=== PATIENT | female | born 1935 | race Caucasian/White ===

== ENCOUNTER 2016-08-17 23:56 | Inpatient (IN) | payer OTHER, MEDICARE ==
[~2016-08-17] VITALS: Ht 152.4 cm; Wt 58.0 kg
[~2016-08-17 23:56] MED LIST: ALENDRONATE SOD70 M1 PO; AMITIZA24 MC1 PO; APR25 PO; APR50 PO; ATRNS6; BG MC; CAR30 PO; CLINDAMYCI600 MG/50 IV; COL100 PO; COZ50 PO; COZAAR100 MG PO; DEXPF IV; DIG125 PO; DIGITEK0.125 MG PO; DILTIAZEM60 M1 PO; FAMILY PHARMAC325 MG PO; FER300 PO; FERROUS SULFAT325 M2 PO; FUROSEMI PO; FUROSEMIDE40 MG PO; GABAPENTIN100 M2 PO; GLU10 PO; GLU5 PO; GLU500 PO; GLYBURIDE/METFO1 TA7 PO; HUMULIN R100 U/1 M1 SC; HYDRALAZINE HYD50 MG PO; HYDRALAZINE50 MG PO; IMD60 PO; IPRATROPIUM BROM3 M2 HHN; K10 PO; L40 PO; L40I IV; LAC PO; LEV500PM IV; LEVAQUIN750 MG PO; LIPI10 PO; LOP50 PO; LOPRESSOR50 MG PO; LOSARTAN POTAS100 MG PO; METFORMIN HCL1000 MG PO; METOPROLOL25 MG PO; MIRUD PO; NAP500 PO; NEU300 PO; NIT0.4 SL; OYSTER SHELL CA PO; PENTOXIFYL XR400 M1 PO; POTASSIUM CHLO10 MEQ PO; POTASSIUM20 MEQ PO; PRA20 PO; PRADAXA150 MG PO; PRI20 PO; RESTASIS OP; ROBDML PO; TRADJENTA PO; TRADJENTA5 M1 PO; TRE400 PO; TYL325 PO; VITD PO; XARELTO PO; XARELTO10 M1 PO; XARELTO15 M1 PO; ZOFI IV
[2016-08-18 00:56] LABS: PLATELET COUNT 217 x10^3mcL (130-400)
[2016-08-18 01:00] LABS: RED CELL DISTRIBUTION WIDTH 14.9 % (11.5-14.5)
[2016-08-18 01:15] LABS: CALCIUM 9.3 mg/dL (8.5-10.1); CARBON DIOXIDE 30.1 mmol/L (21-32); CHLORIDE SERUM 101 mmol/L (98-107); CREATININE SERUM 1.1 mg/dL (0.6-1.0); GLUCOSE SERUM 220 mg/dL (74-106); POTASSIUM SERUM 3.2 mmol/L (3.5-5.1); SODIUM SERUM 141 mmol/L (136-145)
[2016-08-18 01:25] LABS: ALBUMIN 3.5 g/dL (3.4-5.0); ALKALINE PHOSPHATASE 85 U/L (46-116); ALT/SGPT 23 U/L (14-59); AST/SGOT 12 U/L (15-37); BILIRUBIN TOTAL 0.4 mg/dL (0.20-1.00); TOTAL PROTEIN, SERUM 7.3 g/dL (6.4-8.2)
[2016-08-18 02:13] LABS: CHOLESTEROL/HDL RATIO 4.7; MAGNESIUM 1.8 mg/dL (1.8-2.4); PHOSPHOROUS 2.8 mg/dL (2.5-4.9)
[2016-08-18 02:27] LABS: FREE T4 1.22 ng/dL (0.76-1.46)
[2016-08-18 05:55] VITALS: BP 120/59
[2016-08-18 08:38] VITALS: BP 120/59
[2016-08-18 09:18] LABS: T3 TOTAL 1.03 ng/mL
[2016-08-18 13:37] VITALS: BP 118/59
[2016-08-18 17:44] VITALS: BP 157/53
[2016-08-18 21:05] VITALS: BP 157/70
[2016-08-19 05:22] VITALS: BP 109/79
[2016-08-19 06:55] LABS: BASOPHIL % 0.2 % (0-2); PLATELET COUNT 188 x10^3mcL (130-400)
[2016-08-19 06:59] LABS: CALCIUM 8.7 mg/dL (8.5-10.1); CARBON DIOXIDE 32.8 mmol/L (21-32); CHLORIDE SERUM 106 mmol/L (98-107); CREATININE SERUM 0.9 mg/dL (0.6-1.0); GLUCOSE SERUM 109 mg/dL (74-106); MAGNESIUM 1.6 mg/dL (1.8-2.4); PHOSPHOROUS 3.2 mg/dL (2.5-4.9); POTASSIUM SERUM 3.8 mmol/L (3.5-5.1); SODIUM SERUM 144 mmol/L (136-145)
[2016-08-19 07:00] LABS: RED CELL DISTRIBUTION WIDTH 15.3 % (11.5-14.5)
[2016-08-19 10:00] VITALS: BP 134/68
[2016-08-19 14:11] VITALS: BP 133/68
[2016-08-19 18:40] LABS: microscopic required? NO
[2016-08-19 18:50] LABS: urine erythrocyte NEGATIVE (NEGATIVE)
[2016-08-19 19:02] VITALS: BP 139/66
[2016-08-19 21:35] VITALS: BP 158/83
[2016-08-19 23:06] VITALS: BP 131/61
[2016-08-20 05:38] VITALS: BP 148/73
[2016-08-20 09:13] VITALS: BP 115/68
[2016-08-20 14:15] VITALS: BP 133/64
[2016-08-20 22:03] VITALS: BP 160/82
[2016-08-21 06:05] VITALS: BP 138/68
[2016-08-21 06:25] LABS: CALCIUM 8.3 mg/dL (8.5-10.1); CHLORIDE SERUM 105 mmol/L (98-107); CREATININE SERUM 0.9 mg/dL (0.6-1.0); GLUCOSE SERUM 85 mg/dL (74-106); MAGNESIUM 2.1 mg/dL (1.8-2.4); PHOSPHOROUS 3.1 mg/dL (2.5-4.9); POTASSIUM SERUM 3.7 mmol/L (3.5-5.1); SODIUM SERUM 143 mmol/L (136-145)
[2016-08-21 07:52] LABS: BASOPHIL % 0.5 % (0-2); PLATELET COUNT 183 x10^3mcL (130-400)
[2016-08-21 07:54] LABS: RED CELL DISTRIBUTION WIDTH 16.2 % (11.5-14.5)
[2016-08-21] MEDS ORDERED: TRADJENTA5 M1 PO (08:59)
[2016-08-21] MEDS ORDERED: LEVAQUIN750 MG PO (09:01)
[2016-08-21] MEDS ORDERED: CLEOCIN HCL300 MG PO (09:01)
[2016-08-21] MEDS ORDERED: LAC PO (09:03)
[2016-08-21 09:30] VITALS: BP 138/66
[2016-08-21 11:06] VITALS: BP 138/66
== END 2016-08-21 14:19 | disposition home or self-care (01) | DRG 137 ==
LOC: ED 23:56 → DU 08-18 01:33
PROVIDERS: Emergency Medicine; Family Medicine; ADMIT Family Medicine
DX: J69.0 Pneumonitis due to inhalation of food and vomit (principal); N17.0 Acute kidney failure with tubular necrosis; I50.43 Acute on chronic combined systolic (congestive) and diastolic (congestive) heart failure; J96.10 Chronic respiratory failure, unspecified whether with hypoxia or hypercapnia; I42.0 Dilated cardiomyopathy; D68.69 Other thrombophilia; E11.65 Type 2 diabetes mellitus with hyperglycemia; E11.42 Type 2 diabetes mellitus with diabetic polyneuropathy; E11.51 Type 2 diabetes mellitus with diabetic peripheral angiopathy without gangrene; I48.2 Chronic atrial fibrillation; I11.0 Hypertensive heart disease with heart failure; I16.0 Hypertensive urgency; E87.6 Hypokalemia; E78.5 Hyperlipidemia, unspecified; Z79.4 Long term (current) use of insulin; Z68.24 Body mass index [BMI] 24.0-24.9, adult; Z99.81 Dependence on supplemental oxygen; I25.10 Atherosclerotic heart disease of native coronary artery without angina pectoris
CPT/HCPCS: 83880; 84439; 97110-GP; 97116-GP; 97530-GP; J2543; J3475; J3490; J7030; Q0092

== ENCOUNTER 2016-08-24 08:35 | Emergency (ER) | payer MEDICARE, OTHER ==
[~2016-08-24] VITALS: Ht 157.5 cm; Wt 57.1 kg
[~2016-08-24 08:35] MED LIST changes: +CLEOCIN HCL300 MG PO
[2016-08-24 09:17] LABS: BASOPHIL % 0.4 % (0-2); PLATELET COUNT 244 x10^3mcL (130-400)
[2016-08-24 09:22] LABS: RED CELL DISTRIBUTION WIDTH 16.5 % (11.5-14.5)
[2016-08-24 09:27] LABS: CALCIUM 9.5 mg/dL (8.5-10.1); CARBON DIOXIDE 31.5 mmol/L (21-32); CHLORIDE SERUM 102 mmol/L (98-107); CREATININE SERUM 1.1 mg/dL (0.6-1.0); GLUCOSE SERUM 136 mg/dL (74-106); POTASSIUM SERUM 3.7 mmol/L (3.5-5.1); SODIUM SERUM 141 mmol/L (136-145)
[2016-08-24 09:41] LABS: CK-MB 0.7 ng/mL (0-3.6); FREE T4 1.25 ng/dL (0.76-1.46); FREE THYROXINE INDEX 2.6 ug/dL (1.4-4.5); T3 TOTAL 1.09 ng/mL; T4(THYROXINE) 8.1 ug/dL (4.7-13.3)
[2016-08-24 09:49] LABS: ALKALINE PHOSPHATASE 72 U/L (46-116); ALT/SGPT 17 U/L (14-59); AST/SGOT 13 U/L (15-37); BILIRUBIN TOTAL 0.7 mg/dL (0.20-1.00); C REACTIVE PROTEIN 11.2 mg/dL (<=0.9); TOTAL PROTEIN, SERUM 7.2 g/dL (6.4-8.2)
[2016-08-24 09:51] LABS: ALBUMIN 3.2 g/dL (3.4-5.0)
[2016-08-24 10:22] LABS: ERYTHROCYTE SED RATE 36 mm/hr (0-30)
[2016-08-24 14:00] VITALS: BP 148/90
== END 2016-08-24 16:22 | disposition home or self-care (01) ==
LOC: ED 08:35
PROVIDERS: Specialist
DX: I48.91 Unspecified atrial fibrillation (principal); I11.0 Hypertensive heart disease with heart failure; R11.2 Nausea with vomiting, unspecified; E11.9 Type 2 diabetes mellitus without complications; I73.9 Peripheral vascular disease, unspecified; I25.10 Atherosclerotic heart disease of native coronary artery without angina pectoris; G62.9 Polyneuropathy, unspecified; E78.5 Hyperlipidemia, unspecified; Z90.89 Acquired absence of other organs
CPT/HCPCS: 83880; 84439; J0360; J3490; J7030

== ENCOUNTER 2016-10-21 11:37 | Inpatient (IN) | payer OTHER, MEDICARE ==
[~2016-10-21] VITALS: Ht 152.4 cm; Wt 56.4 kg
[2016-10-21 12:48] LABS: BASOPHIL % 0.4 % (0-2); PLATELET COUNT 255 x10^3mcL (130-400)
[2016-10-21 12:49] LABS: RED CELL DISTRIBUTION WIDTH 17.5 % (11.5-14.5)
[2016-10-21 13:12] LABS: CALCIUM 9.4 mg/dL (8.5-10.1); CARBON DIOXIDE 27.1 mmol/L (21-32); CHLORIDE SERUM 103 mmol/L (98-107); CREATININE SERUM 0.7 mg/dL (0.6-1.0); GLUCOSE SERUM 111 mg/dL (74-106); POTASSIUM SERUM 3.6 mmol/L (3.5-5.1); SODIUM SERUM 138 mmol/L (136-145)
[2016-10-21 13:17] LABS: ALBUMIN 3.4 g/dL (3.4-5.0); ALKALINE PHOSPHATASE 90 U/L (46-116); ALT/SGPT 37 U/L (14-59); AST/SGOT 29 U/L (15-37); BILIRUBIN TOTAL 0.5 mg/dL (0.20-1.00); LIPASE 247 IU/L (73-393); TOTAL PROTEIN, SERUM 6.8 g/dL (6.4-8.2)
[2016-10-21 14:04] LABS: UA SPECIFIC GRAVITY 1.015 (1.005-1.035); microscopic required? YES; urine erythrocyte NEGATIVE (NEGATIVE)
[2016-10-21] MEDS ORDERED: METOPROLOL TART50 MG PO (15:32)
[2016-10-21] MEDS ORDERED: DIG125 PO (15:33)
[2016-10-21] MEDS ORDERED: GABAPENTIN300 M4 PO (15:35)
[2016-10-21] MEDS ORDERED: COZAAR100 MG PO (15:37)
[2016-10-21] MEDS ORDERED: AMITIZA24 MC1 PO (15:37)
[2016-10-21 16:36] LABS: CHOLESTEROL/HDL RATIO 3.3; MAGNESIUM 1.7 mg/dL (1.8-2.4); PHOSPHOROUS 3.4 mg/dL (2.5-4.9)
[2016-10-21 16:38] LABS: T3 TOTAL 1.03 ng/mL
[2016-10-21 16:45] VITALS: BP 147/83
[2016-10-21 16:46] LABS: FREE T4 1.09 ng/dL (0.76-1.46); T4(THYROXINE) 8.7 ug/dL (4.7-13.3)
[2016-10-21 17:04] VITALS: BP 136/85
[2016-10-21 17:32] VITALS: BP 136/85
[2016-10-21 21:16] VITALS: BP 142/88
[2016-10-22 05:43] VITALS: BP 124/91
[2016-10-22 06:11] LABS: BASOPHIL % 0.3 % (0-2); PLATELET COUNT 233 x10^3mcL (130-400)
[2016-10-22 06:25] LABS: CALCIUM 9.2 mg/dL (8.5-10.1); CARBON DIOXIDE 29.6 mmol/L (21-32); CHLORIDE SERUM 105 mmol/L (98-107); CREATININE SERUM 0.9 mg/dL (0.6-1.0); GLUCOSE SERUM 73 mg/dL (74-106); MAGNESIUM 1.6 mg/dL (1.8-2.4); PHOSPHOROUS 4.4 mg/dL (2.5-4.9); POTASSIUM SERUM 3.2 mmol/L (3.5-5.1); SODIUM SERUM 143 mmol/L (136-145)
[2016-10-22 10:03] VITALS: BP 160/84
[2016-10-22 13:19] VITALS: BP 138/75
[2016-10-22 17:22] VITALS: BP 162/93
[2016-10-22 20:00] VITALS: BP 108/83
[2016-10-22 21:53] VITALS: BP 145/75
[2016-10-23] VITALS (8 sets, daily range): BP systolic 140–174; BP diastolic 76–104
[2016-10-23] MEDS ORDERED: TOPROL XL100 MG PO (12:12)
[2016-10-23] MEDS ORDERED: CARDIZEM30 MG PO (12:16)
[2016-10-23] MEDS ORDERED: LEVAQUIN750 MG PO (12:17)
[2016-10-23] MEDS ORDERED: LAC PO (12:18)
[2016-10-24 05:22] VITALS: BP 156/85
[2016-10-24 06:11] LABS: BASOPHIL % 0.3 % (0-2); PLATELET COUNT 228 x10^3mcL (130-400)
[2016-10-24 06:21] LABS: CARBON DIOXIDE 28.9 mmol/L (21-32); CHLORIDE SERUM 104 mmol/L (98-107); CREATININE SERUM 0.8 mg/dL (0.6-1.0); GLUCOSE SERUM 139 mg/dL (74-106); MAGNESIUM 1.9 mg/dL (1.8-2.4); PHOSPHOROUS 3.5 mg/dL (2.5-4.9); POTASSIUM SERUM 3.5 mmol/L (3.5-5.1); SODIUM SERUM 142 mmol/L (136-145)
[2016-10-24 06:36] LABS: RED CELL DISTRIBUTION WIDTH 17.6 % (11.5-14.5)
[2016-10-24 09:12] VITALS: BP 156/85
[2016-10-24 10:07] VITALS: BP 131/78
[2016-10-24] MEDS ORDERED: CLEOCIN HCL300 MG PO (11:38)
[2016-10-24 12:04] VITALS: BP 131/78
== END 2016-10-24 13:35 | disposition home or self-care (01) | DRG 137 ==
LOC: ED 11:37 → DU 15:29
PROVIDERS: Emergency Medicine; ADMIT Family Medicine
DX: J69.0 Pneumonitis due to inhalation of food and vomit (principal); N17.0 Acute kidney failure with tubular necrosis; I50.43 Acute on chronic combined systolic (congestive) and diastolic (congestive) heart failure; J44.1 Chronic obstructive pulmonary disease with (acute) exacerbation; I11.0 Hypertensive heart disease with heart failure; I48.2 Chronic atrial fibrillation; I16.0 Hypertensive urgency; I25.10 Atherosclerotic heart disease of native coronary artery without angina pectoris; E11.65 Type 2 diabetes mellitus with hyperglycemia; E11.51 Type 2 diabetes mellitus with diabetic peripheral angiopathy without gangrene; E11.42 Type 2 diabetes mellitus with diabetic polyneuropathy; Z99.81 Dependence on supplemental oxygen; E83.39 Other disorders of phosphorus metabolism; E87.6 Hypokalemia; R09.02 Hypoxemia; E78.5 Hyperlipidemia, unspecified; Z68.24 Body mass index [BMI] 24.0-24.9, adult; Z79.84 Long term (current) use of oral hypoglycemic drugs; Z91.19 Patient's noncompliance with other medical treatment and regimen
CPT/HCPCS: 83880; 84439; 94150; J0360; J1815; J1940; J1956; J3490; J7030; J7040; J7620; J7633; Q0092; Q0162; Q9967

== ENCOUNTER 2017-03-01 04:13 | Inpatient (IN) | payer OTHER, MEDICARE ==
[~2017-03-01] VITALS: Ht 149.9 cm; Wt 57.2 kg
[~2017-03-01 04:13] MED LIST changes: +CARDIZEM30 MG PO; +GABAPENTIN300 M4 PO; +METOPROLOL TART50 MG PO; +TOPROL XL100 MG PO
[2017-03-01 05:15] LABS: BASOPHIL % 0.2 % (0-2); PLATELET COUNT 237 x10^3mcL (130-400)
[2017-03-01 05:19] LABS: RED CELL DISTRIBUTION WIDTH 20.4 % (11.5-14.5)
[2017-03-01 05:22] LABS: CALCIUM 9.1 mg/dL (8.5-10.1); CARBON DIOXIDE 28.1 mmol/L (21-32); CHLORIDE SERUM 102 mmol/L (98-107); CREATININE SERUM 1.1 mg/dL (0.6-1.0); GLUCOSE SERUM 134 mg/dL (74-106); POTASSIUM SERUM 3.9 mmol/L (3.5-5.1); SODIUM SERUM 135 mmol/L (136-145)
[2017-03-01 05:26] LABS: ALKALINE PHOSPHATASE 85 U/L (46-116); ALT/SGPT 26 U/L (14-59); AST/SGOT 23 U/L (15-37); BILIRUBIN TOTAL 0.28 mg/dL (0.20-1.00); TOTAL PROTEIN, SERUM 6.6 g/dL (6.4-8.2)
[2017-03-01 07:43] LABS: MAGNESIUM 1.9 mg/dL (1.8-2.4); PHOSPHOROUS 2.5 mg/dL (2.5-4.9)
[2017-03-01 07:45] LABS: CHOLESTEROL/HDL RATIO 4.4
[2017-03-01 07:50] LABS: FREE T4 1.01 ng/dL (0.76-1.46); FREE THYROXINE INDEX 2.5 ug/dL (1.4-4.5); T4(THYROXINE) 7.4 ug/dL (4.7-13.3)
[2017-03-01 08:14] LABS: UA SPECIFIC GRAVITY 1.015 (1.005-1.035); microscopic required? YES; urine erythrocyte NEGATIVE (NEGATIVE)
[2017-03-01 08:43] VITALS: BP 130/64
[2017-03-01 10:56] LABS: T3 TOTAL 0.89 ng/mL
[2017-03-01 14:09] VITALS: BP 124/70
[2017-03-01 18:01] VITALS: BP 133/69
[2017-03-01 20:51] VITALS: BP 144/79
[2017-03-02 05:22] VITALS: BP 169/79
[2017-03-02 08:24] LABS: BASOPHIL % 0.3 % (0-2); PLATELET COUNT 220 x10^3mcL (130-400)
[2017-03-02 08:28] LABS: RED CELL DISTRIBUTION WIDTH 20.5 % (11.5-14.5)
[2017-03-02 08:32] LABS: CALCIUM 8.4 mg/dL (8.5-10.1); CARBON DIOXIDE 28.5 mmol/L (21-32); CHLORIDE SERUM 107 mmol/L (98-107); CREATININE SERUM 1.1 mg/dL (0.6-1.0); GLUCOSE SERUM 91 mg/dL (74-106); POTASSIUM SERUM 3.9 mmol/L (3.5-5.1); SODIUM SERUM 141 mmol/L (136-145)
[2017-03-02 09:35] VITALS: BP 159/94
[2017-03-02 12:56] VITALS: BP 139/83
[2017-03-02 14:45] VITALS: BP 159/94
[2017-03-02 16:52] VITALS: BP 156/86
[2017-03-02 21:41] VITALS: BP 147/75; BP 152/98
[2017-03-03 06:35] LABS: BASOPHIL % 0.4 % (0-2); PLATELET COUNT 194 x10^3mcL (130-400)
[2017-03-03 06:37] VITALS: BP 155/83
[2017-03-03 06:55] LABS: CALCIUM 8.1 mg/dL (8.5-10.1); CARBON DIOXIDE 30.4 mmol/L (21-32); CHLORIDE SERUM 107 mmol/L (98-107); CREATININE SERUM 1.1 mg/dL (0.6-1.0); GLUCOSE SERUM 110 mg/dL (74-106); MAGNESIUM 1.8 mg/dL (1.8-2.4); PHOSPHOROUS 4.2 mg/dL (2.5-4.9); POTASSIUM SERUM 3.9 mmol/L (3.5-5.1); SODIUM SERUM 144 mmol/L (136-145)
[2017-03-03 07:03] LABS: RED CELL DISTRIBUTION WIDTH 20.6 % (11.5-14.5)
[2017-03-03 09:20] VITALS: BP 150/79
[2017-03-03 13:30] VITALS: BP 157/88
[2017-03-03 16:50] VITALS: BP 168/99
[2017-03-03 20:44] VITALS: BP 159/97
[2017-03-04] VITALS (7 sets, daily range): BP systolic 159–180; BP diastolic 87–106
[2017-03-04 09:14] LABS: CALCIUM 8.4 mg/dL (8.5-10.1); CARBON DIOXIDE 29.5 mmol/L (21-32); CHLORIDE SERUM 107 mmol/L (98-107); CREATININE SERUM 0.9 mg/dL (0.6-1.0); GLUCOSE SERUM 108 mg/dL (74-106); POTASSIUM SERUM 3.4 mmol/L (3.5-5.1); SODIUM SERUM 144 mmol/L (136-145)
[2017-03-04 10:48] LABS: BASOPHIL % 0.5 % (0-2); PLATELET COUNT 189 x10^3mcL (130-400); RED CELL DISTRIBUTION WIDTH 20.4 % (11.5-14.5)
[2017-03-04] MEDS ORDERED: RESTASIS0.051 OU (10:53)
[2017-03-04 12:20] LABS: burr cell (echinocyte) 1+; ovalocyte/elliptocyte 1+; rbc morphology (normal/abnorm) ABNORMAL (NORMAL)
[2017-03-05 04:39] VITALS: BP 189/109
[2017-03-05 05:51] VITALS: BP 174/98
[2017-03-05 06:27] LABS: BASOPHIL % 0.3 % (0-2); PLATELET COUNT 202 x10^3mcL (130-400)
[2017-03-05 06:50] LABS: CALCIUM 8.7 mg/dL (8.5-10.1); CARBON DIOXIDE 30.4 mmol/L (21-32); CHLORIDE SERUM 108 mmol/L (98-107); CREATININE SERUM 0.9 mg/dL (0.6-1.0); GLUCOSE SERUM 73 mg/dL (74-106); POTASSIUM SERUM 3.5 mmol/L (3.5-5.1); SODIUM SERUM 145 mmol/L (136-145)
[2017-03-05 06:56] LABS: RED CELL DISTRIBUTION WIDTH 20.4 % (11.5-14.5)
[2017-03-05 09:25] VITALS: BP 186/103
[2017-03-05 13:00] VITALS: BP 172/107
[2017-03-05 13:16] VITALS: BP 148/98
[2017-03-05 13:17] VITALS: BP 148/98
== END 2017-03-05 14:54 | disposition home or self-care (01) | DRG 254 ==
LOC: ED 04:13 → DU 06:19 → EDBEDREQ 06:32 → DU 12:41
PROVIDERS: Emergency Medicine; Family Medicine; Family Medicine Sports Medicine; Internal Medicine Gastroenterology; ADMIT Student in an Organized Health Care Education/Training Program
PROC: 0DB78ZX Excision of Stomach, Pylorus, Via Natural or Artificial Opening Endoscopic, Diagnostic (ICD-10-PCS; principal; 2017-03-03 12:00)
PROC: 0DB78ZZ Excision of Stomach, Pylorus, Via Natural or Artificial Opening Endoscopic (ICD-10-PCS; 2017-03-03 12:00)
PROC: 0W3P8ZZ Control Bleeding in Gastrointestinal Tract, Via Natural or Artificial Opening Endoscopic (ICD-10-PCS; 2017-03-03 12:00)
DX: K31.7 Polyp of stomach and duodenum (principal); J96.01 Acute respiratory failure with hypoxia; N17.0 Acute kidney failure with tubular necrosis; J69.0 Pneumonitis due to inhalation of food and vomit; I50.43 Acute on chronic combined systolic (congestive) and diastolic (congestive) heart failure; D68.69 Other thrombophilia; E11.42 Type 2 diabetes mellitus with diabetic polyneuropathy; E86.0 Dehydration; I48.2 Chronic atrial fibrillation; I10 Essential (primary) hypertension; R80.9 Proteinuria, unspecified; K80.20 Calculus of gallbladder without cholecystitis without obstruction; E11.51 Type 2 diabetes mellitus with diabetic peripheral angiopathy without gangrene; E87.1 Hypo-osmolality and hyponatremia; E11.65 Type 2 diabetes mellitus with hyperglycemia; I25.10 Atherosclerotic heart disease of native coronary artery without angina pectoris; E78.5 Hyperlipidemia, unspecified; Z68.25 Body mass index [BMI] 25.0-25.9, adult; Z79.84 Long term (current) use of oral hypoglycemic drugs
CPT/HCPCS: 43235; 83880; 84439; 90658; G0480; J0171; J1200; J1610; J2250; J2310; J2405; J2543; J3010; J3490; J7030; J7040; J7620; Q0092; Q9967

== ENCOUNTER 2017-05-17 13:00 | Inpatient (IN) | payer OTHER, MEDICARE ==
[~2017-05-17] VITALS: Ht 154.9 cm; Wt 55.1 kg
[~2017-05-17 13:00] MED LIST changes: +RESTASIS0.051 OU
[2017-05-17 15:40] LABS: BASOPHIL % 0.4 % (0-2); PLATELET COUNT 203 x10^3mcL (130-400)
[2017-05-17 15:48] LABS: CALCIUM 9.1 mg/dL (8.5-10.1); CARBON DIOXIDE 31.8 mmol/L (21-32); CHLORIDE SERUM 100 mmol/L (98-107); GLUCOSE SERUM 135 mg/dL (74-106); POTASSIUM SERUM 3.6 mmol/L (3.5-5.1); SODIUM SERUM 137 mmol/L (136-145)
[2017-05-17 15:52] LABS: ALKALINE PHOSPHATASE 85 U/L (46-116); ALT/SGPT 20 U/L (14-59); AST/SGOT 15 U/L (15-37); BILIRUBIN TOTAL 0.6 mg/dL (0.20-1.00)
[2017-05-17 15:53] LABS: ALBUMIN 3.3 g/dL (3.4-5.0)
[2017-05-17 15:55] LABS: RED CELL DISTRIBUTION WIDTH 21.1 % (11.5-14.5)
[2017-05-17] MEDS ORDERED: LEADER NATURAL PO (16:06)
[2017-05-17] MEDS ORDERED: LIPI10 PO ×2 (16:06→18:46)
[2017-05-17] MEDS ORDERED: NEXIUM40 MG PO ×3 (16:06→18:48)
[2017-05-17] MEDS ORDERED: CORE25 PO (16:07)
[2017-05-17] MEDS ORDERED: FEROSUL325 MG PO (16:07)
[2017-05-17] MEDS ORDERED: CARDIZEM60 MG PO (16:08)
[2017-05-17] MEDS ORDERED: PENTOXIFYL XR400 M1 PO (16:08)
[2017-05-17] MEDS ORDERED: HYDRALAZINE PO (16:09)
[2017-05-17] MEDS ORDERED: METFORMIN HCL500 MG PO (16:10)
[2017-05-17] MEDS ORDERED: LOSARTAN POTASS1 TA6 PO ×2 (16:10→18:45)
[2017-05-17] MEDS ORDERED: AMITIZA24 MC1 PO ×2 (16:11→18:43)
[2017-05-17] MEDS ORDERED: NEU300 PO ×2 (16:11→18:48)
[2017-05-17] MEDS ORDERED: XARELTO PO (16:11)
[2017-05-17] MEDS ORDERED: TRADJENTA5 M1 PO ×4 (16:11→18:44)
[2017-05-17] MEDS ORDERED: NITROGLYCERIN0.4 MG SL ×2 (16:12→18:53)
[2017-05-17] MEDS ORDERED: DIGOXIN0.125 M1 PO (16:12)
[2017-05-17 17:01] VITALS: BP 166/73
[2017-05-17 17:06] LABS: rbc morphology (normal/abnorm) ABNORMAL (NORMAL)
[2017-05-17 17:35] VITALS: Ht 154.9 cm; Wt 55.1 kg
[2017-05-17 17:44] LABS: MAGNESIUM 1.9 mg/dL (1.8-2.4)
[2017-05-17 17:53] VITALS: BP 161/83
[2017-05-17] MEDS ORDERED: CALCIUM/VITAMIN1 TA2 PO (18:34)
[2017-05-17] MEDS ORDERED: HYDRALAZINE HCL25 MG PO (18:41)
[2017-05-17] MEDS ORDERED: TRE400 PO (18:42)
[2017-05-17] MEDS ORDERED: CARVEDILOL25 M1 PO (18:44)
[2017-05-17] MEDS ORDERED: XARELTO10 M1 PO (18:47)
[2017-05-17] MEDS ORDERED: METFORMIN HCL1000 MG PO (18:49)
[2017-05-17] MEDS ORDERED: DIG125 PO (18:50)
[2017-05-17] MEDS ORDERED: FERROUS SULFAT325 M2 PO (18:50)
[2017-05-17] MEDS ORDERED: DILTIAZEM PO (18:55)
[2017-05-17 21:02] VITALS: BP 140/60
[2017-05-17 22:14] VITALS: BP 132/78
[2017-05-18 00:35] LABS: microscopic required? NO
[2017-05-18 00:52] LABS: UA SPECIFIC GRAVITY <=1.005 (1.005-1.035); urine erythrocyte NEGATIVE (NEGATIVE)
[2017-05-18 01:26] LABS: AMPHETAMINE QUAL UR NONE DETECTED (NEG <=1000)
[2017-05-18 05:00] VITALS: BP 136/68; BP 136/82
[2017-05-18 06:47] LABS: BASOPHIL % 0.2 % (0-2); PLATELET COUNT 197 x10^3mcL (130-400)
[2017-05-18 07:00] LABS: RED CELL DISTRIBUTION WIDTH 20.2 % (11.5-14.5)
[2017-05-18 07:01] LABS: rbc morphology (normal/abnorm) ABNORMAL (NORMAL)
[2017-05-18 07:06] LABS: CARBON DIOXIDE 24.6 mmol/L (21-32); CHLORIDE SERUM 100 mmol/L (98-107); CREATININE SERUM 1.1 mg/dL (0.6-1.0); GLUCOSE SERUM 191 mg/dL (74-106); POTASSIUM SERUM 3.5 mmol/L (3.5-5.1); SODIUM SERUM 139 mmol/L (136-145)
[2017-05-18 09:25] VITALS: BP 120/70
[2017-05-18 13:55] VITALS: BP 137/89
[2017-05-18 17:56] VITALS: BP 132/61
[2017-05-18 21:26] VITALS: BP 107/62
[2017-05-19 05:50] VITALS: BP 123/61
[2017-05-19 07:37] LABS: CALCIUM 8.2 mg/dL (8.5-10.1); CARBON DIOXIDE 25.3 mmol/L (21-32); CHLORIDE SERUM 101 mmol/L (98-107); CREATININE SERUM 1.8 mg/dL (0.6-1.0); GLUCOSE SERUM 180 mg/dL (74-106); POTASSIUM SERUM 4.1 mmol/L (3.5-5.1); SODIUM SERUM 138 mmol/L (136-145)
[2017-05-19 08:16] LABS: PLATELET COUNT 220 x10^3mcL (130-400)
[2017-05-19 08:35] LABS: BASOPHIL % 0 % (0-2); RED CELL DISTRIBUTION WIDTH 20.4 % (11.5-14.5); rbc morphology (normal/abnorm) ABNORMAL (NORMAL)
[2017-05-19 09:39] VITALS: BP 91/44
[2017-05-19] MEDS ORDERED: LEVAQUIN750 MG PO (09:43)
[2017-05-19] MEDS ORDERED: CLEOCIN HCL300 MG PO (09:43)
[2017-05-19] MEDS ORDERED: LAC PO (09:44)
[2017-05-19 09:51] VITALS: BP 91/44
[2017-05-19] MEDS ORDERED: LASIX20 MG PO (10:37)
[2017-05-19 14:03] VITALS: BP 108/54
[2017-05-19 17:41] VITALS: BP 103/54
[2017-05-19 21:35] VITALS: BP 110/60
[2017-05-20 05:00] VITALS: BP 124/63
[2017-05-20 07:26] LABS: BASOPHIL % 0.2 % (0-2); PLATELET COUNT 199 x10^3mcL (130-400)
[2017-05-20 07:40] LABS: CALCIUM 8.2 mg/dL (8.5-10.1); CHLORIDE SERUM 104 mmol/L (98-107); CREATININE SERUM 1.8 mg/dL (0.6-1.0); GLUCOSE SERUM 125 mg/dL (74-106); POTASSIUM SERUM 3.5 mmol/L (3.5-5.1); SODIUM SERUM 141 mmol/L (136-145)
[2017-05-20 08:36] LABS: RED CELL DISTRIBUTION WIDTH 20.5 % (11.5-14.5)
[2017-05-20 10:23] VITALS: BP 107/52
[2017-05-20 11:31] LABS: rbc morphology (normal/abnorm) ABNORMAL (NORMAL)
[2017-05-20 14:18] VITALS: BP 130/61
[2017-05-20 16:28] VITALS: BP 124/64
[2017-05-20 21:23] VITALS: BP 157/73
[2017-05-21] VITALS (10 sets, daily range): BP systolic 149–178; BP diastolic 68–87
[2017-05-21 07:39] LABS: BASOPHIL % 0.3 % (0-2); PLATELET COUNT 196 x10^3mcL (130-400)
[2017-05-21 07:40] LABS: RED CELL DISTRIBUTION WIDTH 20.5 % (11.5-14.5)
[2017-05-21 07:41] LABS: rbc morphology (normal/abnorm) ABNORMAL (NORMAL)
[2017-05-21 07:50] LABS: CALCIUM 8.3 mg/dL (8.5-10.1); CARBON DIOXIDE 28.5 mmol/L (21-32); CHLORIDE SERUM 108 mmol/L (98-107); GLUCOSE SERUM 115 mg/dL (74-106); POTASSIUM SERUM 3.5 mmol/L (3.5-5.1); SODIUM SERUM 144 mmol/L (136-145)
[2017-05-21] MEDS ORDERED: CLINDAMYCIN HC300 MG PO (14:52)
[2017-05-21] MEDS ORDERED: LEVOFLOXACIN500 M1 PO (14:52)
== END 2017-05-21 23:04 | disposition home or self-care (01) | DRG 137 ==
LOC: ED 13:00 → DU 16:01
PROVIDERS: Emergency Medicine; Family Medicine; Family Medicine Sports Medicine
DX: J69.0 Pneumonitis due to inhalation of food and vomit (principal); I50.43 Acute on chronic combined systolic (congestive) and diastolic (congestive) heart failure; E11.42 Type 2 diabetes mellitus with diabetic polyneuropathy; D68.69 Other thrombophilia; E11.51 Type 2 diabetes mellitus with diabetic peripheral angiopathy without gangrene; E11.65 Type 2 diabetes mellitus with hyperglycemia; E86.0 Dehydration; I48.2 Chronic atrial fibrillation; E44.1 Mild protein-calorie malnutrition; I10 Essential (primary) hypertension; J09.X2 Influenza due to identified novel influenza A virus with other respiratory manifestations; I25.10 Atherosclerotic heart disease of native coronary artery without angina pectoris; Z68.22 Body mass index [BMI] 22.0-22.9, adult; Z79.84 Long term (current) use of oral hypoglycemic drugs
CPT/HCPCS: 83880; 87804; 97530-GP; J1940; J1956; J2405; J2920; J3490; J7030; Q0092

== ENCOUNTER 2017-07-05 03:10 | Inpatient (IN) | payer OTHER, MEDICARE ==
[~2017-07-05] VITALS: Ht 152.4 cm; Wt 55.5 kg
[~2017-07-05 03:10] MED LIST changes: +CALCIUM/VITAMIN1 TA2 PO; +CARDIZEM60 MG PO; +CARVEDILOL25 M1 PO; +CLINDAMYCIN HC300 MG PO; +CORE25 PO; +DIGOXIN0.125 M1 PO; +DILTIAZEM PO; +FEROSUL325 MG PO; +HYDRALAZINE HCL25 MG PO; +HYDRALAZINE PO; +LASIX20 MG PO; +LEADER NATURAL PO; +LEVOFLOXACIN500 M1 PO; +LOSARTAN POTASS1 TA6 PO; +METFORMIN HCL500 MG PO; +NEXIUM40 MG PO; +NITROGLYCERIN0.4 MG SL
[2017-07-05 04:17] LABS: BASOPHIL % 0.4 % (0-2); PLATELET COUNT 229 x10^3mcL (130-400)
[2017-07-05 04:21] LABS: RED CELL DISTRIBUTION WIDTH 17.7 % (11.5-14.5)
[2017-07-05 04:29] LABS: CARBON DIOXIDE 31.3 mmol/L (21-32); CHLORIDE SERUM 102 mmol/L (98-107); CREATININE SERUM 1.2 mg/dL (0.6-1.0); GLUCOSE SERUM 159 mg/dL (74-106); SODIUM SERUM 139 mmol/L (136-145)
[2017-07-05 04:42] LABS: ALKALINE PHOSPHATASE 113 U/L (46-116); ALT/SGPT 19 U/L (14-59); AST/SGOT 13 U/L (15-37); BILIRUBIN TOTAL 0.2 mg/dL (0.20-1.00); FREE T4 0.93 ng/dL (0.76-1.46); TOTAL PROTEIN, SERUM 7.4 g/dL (6.4-8.2)
[2017-07-05 04:45] LABS: ALBUMIN 3.3 g/dL (3.4-5.0)
[2017-07-05] MEDS ORDERED: DIGOX0.125 MG PO (05:01)
[2017-07-05] MEDS ORDERED: PENTOXIFYL XR400 M1 PO (05:02)
[2017-07-05] MEDS ORDERED: DILTIAZEM HCL60 MG PO (05:04)
[2017-07-05] MEDS ORDERED: NEXIUM40 MG PO (05:05)
[2017-07-05] MEDS ORDERED: LOSARTAN POTAS100 M1 PO (05:05)
[2017-07-05] MEDS ORDERED: HYDRALAZINE HCL25 MG (05:05)
[2017-07-05] MEDS ORDERED: LIPI10 PO (05:06)
[2017-07-05] MEDS ORDERED: CEPHALEXIN500 MG PO (05:09)
[2017-07-05] MEDS ORDERED: TRADJENTA5 M1 PO (05:09)
[2017-07-05] MEDS ORDERED: XANAX0.25 MG PO (05:09)
[2017-07-05] MEDS ORDERED: POTASSIUM CHLO10 MEQ PO (05:10)
[2017-07-05] MEDS ORDERED: NITROGLYCERIN0.4 MG SL (05:10)
[2017-07-05] MEDS ORDERED: AMITIZA24 MC1 PO (05:11)
[2017-07-05] MEDS ORDERED: FUROSEMIDE40 MG PO (05:11)
[2017-07-05] MEDS ORDERED: NEU300 PO (05:13)
[2017-07-05] MEDS ORDERED: FEROSUL325 MG PO (05:13)
[2017-07-05] MEDS ORDERED: METFORMIN HCL1000 MG PO (05:14)
[2017-07-05] MEDS ORDERED: NATURE'S BLEND500 M3 PO (05:14)
[2017-07-05] MEDS ORDERED: XARELTO10 M1 PO (05:15)
[2017-07-05] MEDS ORDERED: CARVEDILOL25 M1 PO (05:15)
[2017-07-05 06:15] LABS: RED BLOOD CELLS 3.95 M/mm3 (4.10-5.10)
[2017-07-05 07:32] VITALS: BP 161/78
[2017-07-05 07:38] LABS: UA SPECIFIC GRAVITY <=1.005 (1.005-1.035); microscopic required? YES; urine erythrocyte NEGATIVE (NEGATIVE)
[2017-07-05 07:45] LABS: MAGNESIUM 2.1 mg/dL (1.8-2.4); PHOSPHOROUS 3.7 mg/dL (2.5-4.9)
[2017-07-05 07:46] LABS: CHOLESTEROL/HDL RATIO 4.5
[2017-07-05 07:47] VITALS: BP 161/78
[2017-07-05 08:00] LABS: FREE T4 1.03 ng/dL (0.76-1.46); FREE THYROXINE INDEX 2.4 ug/dL (1.4-4.5); T4(THYROXINE) 7.2 ug/dL (4.7-13.3)
[2017-07-05 09:20] LABS: IRON 32 ug/dL (50-170); TOTAL IRON BINDING CAPACITY 371 ug/dL (250-450)
[2017-07-05 09:53] LABS: T3 TOTAL 0.74 ng/mL
[2017-07-05 13:40] VITALS: BP 155/79
[2017-07-05 21:13] VITALS: BP 161/80
[2017-07-06] VITALS (7 sets, daily range): BP systolic 150–170; BP diastolic 81–95
[2017-07-06 06:34] LABS: BASOPHIL % 0.3 % (0-2); PLATELET COUNT 214 x10^3mcL (130-400)
[2017-07-06 06:48] LABS: CARBON DIOXIDE 29.6 mmol/L (21-32); CHLORIDE SERUM 105 mmol/L (98-107); CREATININE SERUM 1.1 mg/dL (0.6-1.0); GLUCOSE SERUM 124 mg/dL (74-106); SODIUM SERUM 142 mmol/L (136-145)
[2017-07-07 04:51] VITALS: BP 139/75
[2017-07-07 06:00] LABS: BASOPHIL % 0.5 % (0-2); PLATELET COUNT 214 x10^3mcL (130-400)
[2017-07-07 06:44] LABS: RED CELL DISTRIBUTION WIDTH 17.6 % (11.5-14.5)
[2017-07-07 07:06] LABS: CALCIUM 8.5 mg/dL (8.5-10.1); CARBON DIOXIDE 26.8 mmol/L (21-32); CHLORIDE SERUM 106 mmol/L (98-107); CREATININE SERUM 1.2 mg/dL (0.6-1.0); GLUCOSE SERUM 120 mg/dL (74-106); POTASSIUM SERUM 4.3 mmol/L (3.5-5.1); SODIUM SERUM 142 mmol/L (136-145)
[2017-07-07 09:23] VITALS: BP 171/86
[2017-07-07 09:40] VITALS: BP 158/77
[2017-07-07 13:20] VITALS: BP 140/60
[2017-07-07 17:23] VITALS: BP 132/70
[2017-07-07 17:50] VITALS: Ht 152.4 cm; Wt 55.5 kg
[2017-07-07 20:38] VITALS: BP 169/74
[2017-07-08] VITALS (8 sets, daily range): BP systolic 130–187; BP diastolic 77–101
[2017-07-08 06:51] LABS: BASOPHIL % 0.4 % (0-2); PLATELET COUNT 228 x10^3mcL (130-400)
[2017-07-08 06:52] LABS: RED CELL DISTRIBUTION WIDTH 17.5 % (11.5-14.5)
[2017-07-08 07:00] LABS: CALCIUM 8.3 mg/dL (8.5-10.1); CHLORIDE SERUM 105 mmol/L (98-107); CREATININE SERUM 1.1 mg/dL (0.6-1.0); GLUCOSE SERUM 115 mg/dL (74-106); POTASSIUM SERUM 3.8 mmol/L (3.5-5.1); SODIUM SERUM 141 mmol/L (136-145)
[2017-07-09 05:51] VITALS: BP 170/94
[2017-07-09 05:58] LABS: BASOPHIL % 0.4 % (0-2); PLATELET COUNT 222 x10^3mcL (130-400)
[2017-07-09 06:08] LABS: RED CELL DISTRIBUTION WIDTH 17.6 % (11.5-14.5)
[2017-07-09 06:42] LABS: CALCIUM 8.2 mg/dL (8.5-10.1); CARBON DIOXIDE 27.8 mmol/L (21-32); CHLORIDE SERUM 106 mmol/L (98-107); GLUCOSE SERUM 97 mg/dL (74-106); POTASSIUM SERUM 3.7 mmol/L (3.5-5.1); SODIUM SERUM 143 mmol/L (136-145)
[2017-07-09 10:28] VITALS: BP 140/65
[2017-07-09 12:20] VITALS: BP 181/99
[2017-07-09 13:15] VITALS: BP 202/106
[2017-07-09 16:45] VITALS: BP 146/71
[2017-07-09 19:37] VITALS: BP 146/71
== END 2017-07-09 21:41 | disposition home or self-care (01) | DRG 48 ==
LOC: ED 03:10 → DU 05:37
PROVIDERS: Emergency Medicine; Family Medicine; Student in an Organized Health Care Education/Training Program
DX: G90.8 Other disorders of autonomic nervous system (principal); J69.0 Pneumonitis due to inhalation of food and vomit; N17.0 Acute kidney failure with tubular necrosis; E44.0 Moderate protein-calorie malnutrition; Z93.0 Tracheostomy status; I48.2 Chronic atrial fibrillation; I11.0 Hypertensive heart disease with heart failure; E11.51 Type 2 diabetes mellitus with diabetic peripheral angiopathy without gangrene; E11.65 Type 2 diabetes mellitus with hyperglycemia; I50.9 Heart failure, unspecified; E11.40 Type 2 diabetes mellitus with diabetic neuropathy, unspecified; E78.5 Hyperlipidemia, unspecified; D50.9 Iron deficiency anemia, unspecified; E11.36 Type 2 diabetes mellitus with diabetic cataract; H91.90 Unspecified hearing loss, unspecified ear; Z82.49 Family history of ischemic heart disease and other diseases of the circulatory system; Z84.89 Family history of other specified conditions; Z90.49 Acquired absence of other specified parts of digestive tract; Z90.710 Acquired absence of both cervix and uterus; Z98.42 Cataract extraction status, left eye; Z98.41 Cataract extraction status, right eye; Z90.89 Acquired absence of other organs; Z79.899 Other long term (current) drug therapy; Z68.24 Body mass index [BMI] 24.0-24.9, adult
CPT/HCPCS: 83880; 84439; 87804; 97110-GP; 97116-GP; 97530-GP; J0295; J0360; J1956; J2405; J3490; J7030; Q0092

== ENCOUNTER 2018-02-13 12:07 | Emergency (ER) | payer OTHER, MEDICARE ==
[~2018-02-13] VITALS: Ht 152.4 cm; Wt 54.0 kg
[~2018-02-13 12:07] MED LIST changes: +BIDIL TABLET1 EACH PO; +CEPHALEXIN500 MG PO; +DIGOX0.125 MG PO; +DILTIAZEM HCL180 MG PO; +DILTIAZEM HCL60 MG PO; +HYDRALAZINE HCL25 MG; +LOSARTAN POTAS100 M1 PO; +NATURE'S BLEND500 M3 PO; +XANAX0.25 MG PO
[2018-02-13 12:21] VITALS: Ht 152.4 cm; Wt 54.0 kg
[2018-02-13 14:21] LABS: BASOPHIL % 0.3 % (0-2); PLATELET COUNT 170 x10^3mcL (130-400)
[2018-02-13 14:26] LABS: RED CELL DISTRIBUTION WIDTH 16.3 % (11.5-14.5)
[2018-02-13 14:33] LABS: CALCIUM 9.4 mg/dL (8.5-10.1); CARBON DIOXIDE 30.9 mmol/L (21-32); CHLORIDE SERUM 106 mmol/L (98-107); CREATININE SERUM 1.2 mg/dL (0.6-1.0); GLUCOSE SERUM 197 mg/dL (74-106); POTASSIUM SERUM 4.5 mmol/L (3.5-5.1); SODIUM SERUM 139 mmol/L (136-145)
[2018-02-13 14:38] LABS: ALKALINE PHOSPHATASE 71 U/L (46-116); ALT/SGPT 16 U/L (14-59); AST/SGOT 12 U/L (15-37); BILIRUBIN TOTAL 0.2 mg/dL (0.20-1.00); LIPASE 168 IU/L (73-393); TOTAL PROTEIN, SERUM 6.6 g/dL (6.4-8.2)
[2018-02-13 16:55] VITALS: BP 146/77
== END 2018-02-13 16:40 | disposition home or self-care (01) ==
LOC: ED 12:07
PROVIDERS: Emergency Medicine
DX: H93.11 Tinnitus, right ear (principal); R19.7 Diarrhea, unspecified; R51 Headache; I50.9 Heart failure, unspecified; I11.0 Hypertensive heart disease with heart failure; E11.9 Type 2 diabetes mellitus without complications; F03.90 Unspecified dementia, unspecified severity, without behavioral disturbance, psychotic disturbance, mood disturbance, and anxiety; I48.91 Unspecified atrial fibrillation
CPT/HCPCS: 36415

== ENCOUNTER 2018-02-19 16:42 | Inpatient (IN) | payer OTHER, MEDICARE ==
[~2018-02-19] VITALS: Ht 160 cm; Wt 55.0 kg
[2018-02-19 16:43] VITALS: Ht 160 cm; Wt 55.0 kg
[2018-02-19 18:09] LABS: BASOPHIL % 0.4 % (0-2); PLATELET COUNT 190 x10^3mcL (130-400)
[2018-02-19 18:10] LABS: RED CELL DISTRIBUTION WIDTH 15.9 % (11.5-14.5)
[2018-02-19 18:15] LABS: CALCIUM 9.1 mg/dL (8.5-10.1); CARBON DIOXIDE 29.5 mmol/L (21-32); CHLORIDE SERUM 104 mmol/L (98-107); CREATININE SERUM 1.6 mg/dL (0.6-1.0); GLUCOSE SERUM 128 mg/dL (74-106); POTASSIUM SERUM 3.4 mmol/L (3.5-5.1); SODIUM SERUM 139 mmol/L (136-145)
[2018-02-19 18:20] LABS: ALBUMIN 3.1 g/dL (3.4-5.0); ALKALINE PHOSPHATASE 74 U/L (46-116); ALT/SGPT 17 U/L (14-59); AST/SGOT 14 U/L (15-37); BILIRUBIN TOTAL 0.4 mg/dL (0.20-1.00); TOTAL PROTEIN, SERUM 6.9 g/dL (6.4-8.2)
[2018-02-19] MEDS ORDERED: BIDIL TABLET1 EACH PO (21:22)
[2018-02-19] MEDS ORDERED: TRAMADOL HCL50 MG PO (21:25)
[2018-02-19] MEDS ORDERED: DEXILANT60 M1 PO (21:28)
[2018-02-19] MEDS ORDERED: MOT600 PO (21:30)
[2018-02-19 22:37] LABS: UA SPECIFIC GRAVITY <=1.005 (1.005-1.035); microscopic required? YES; urine erythrocyte NEGATIVE (NEGATIVE)
[2018-02-19 23:14] VITALS: BP 154/68
[2018-02-20 00:37] LABS: T3 TOTAL 0.75 ng/mL
[2018-02-20 00:51] LABS: MAGNESIUM 2.2 mg/dL (1.8-2.4); PHOSPHOROUS 4.7 mg/dL (2.5-4.9)
[2018-02-20 01:26] LABS: FREE T4 1.02 ng/dL (0.76-1.46); FREE THYROXINE INDEX 2.5 ug/dL (1.4-4.5); T4(THYROXINE) 7.8 ug/dL (4.7-13.3)
[2018-02-20 05:29] VITALS: BP 150/72
[2018-02-20 07:05] LABS: BASOPHIL % 0.3 % (0-2); PLATELET COUNT 184 x10^3mcL (130-400)
[2018-02-20 07:07] LABS: CALCIUM 8.5 mg/dL (8.5-10.1); CARBON DIOXIDE 29.8 mmol/L (21-32); CHLORIDE SERUM 109 mmol/L (98-107); CREATININE SERUM 1.3 mg/dL (0.6-1.0); GLUCOSE SERUM 89 mg/dL (74-106); POTASSIUM SERUM 3.4 mmol/L (3.5-5.1); SODIUM SERUM 145 mmol/L (136-145)
[2018-02-20 07:09] LABS: RED CELL DISTRIBUTION WIDTH 16.1 % (11.5-14.5)
[2018-02-20 09:11] VITALS: BP 157/71
[2018-02-20 12:50] VITALS: BP 134/68
[2018-02-20 17:39] VITALS: BP 117/61
[2018-02-20 21:12] VITALS: BP 116/55
[2018-02-21 05:35] VITALS: BP 149/74
[2018-02-21 06:54] LABS: BASOPHIL % 0.2 % (0-2); PLATELET COUNT 178 x10^3mcL (130-400)
[2018-02-21 07:12] LABS: RED CELL DISTRIBUTION WIDTH 15.9 % (11.5-14.5)
[2018-02-21 08:20] LABS: CALCIUM 8.1 mg/dL (8.5-10.1); CARBON DIOXIDE 24.9 mmol/L (21-32); CHLORIDE SERUM 110 mmol/L (98-107); CREATININE SERUM 1.2 mg/dL (0.6-1.0); GLUCOSE SERUM 124 mg/dL (74-106); PHOSPHOROUS 3.3 mg/dL (2.5-4.9); POTASSIUM SERUM 3.1 mmol/L (3.5-5.1); SODIUM SERUM 144 mmol/L (136-145)
[2018-02-21 09:32] VITALS: BP 115/52
[2018-02-21 12:50] VITALS: BP 120/50
[2018-02-21] MEDS ORDERED: BACTRIM DS1 TAB PO (14:57)
[2018-02-21 15:29] VITALS: BP 120/50
[2018-02-21 17:19] VITALS: BP 130/63
== END 2018-02-21 18:12 | disposition home health service (06) | DRG 383 ==
LOC: ED 16:42 → MU 22:17 → DU 22:17
PROVIDERS: Emergency Medicine; Internal Medicine
DX: L03.213 Periorbital cellulitis (principal); N17.0 Acute kidney failure with tubular necrosis; G93.41 Metabolic encephalopathy; E44.0 Moderate protein-calorie malnutrition; N39.0 Urinary tract infection, site not specified; E11.65 Type 2 diabetes mellitus with hyperglycemia; E86.0 Dehydration; E87.6 Hypokalemia; I10 Essential (primary) hypertension; E78.5 Hyperlipidemia, unspecified; Z68.29 Body mass index [BMI] 29.0-29.9, adult; Z79.84 Long term (current) use of oral hypoglycemic drugs
CPT/HCPCS: 82962; 84439; 97110-GP; 97116-GP; 97530-GP; J0696; J2543; J3370; J3490; J7030

== ENCOUNTER 2018-07-12 14:03 | Emergency (ER) | payer MEDICARE, OTHER ==
[~2018-07-12] VITALS: Ht 152.4 cm; Wt 56.2 kg
[~2018-07-12 14:03] MED LIST changes: +BACTRIM DS1 TAB PO; +DEXILANT60 M1 PO; +MOT600 PO; +TRAMADOL HCL50 MG PO
[2018-07-12 14:06] VITALS: Ht 152.4 cm; Wt 56.2 kg
[2018-07-12 16:41] LABS: BASOPHIL % 0.6 % (0-2); PLATELET COUNT 171 x10^3mcL (130-400)
[2018-07-12 16:48] LABS: RED CELL DISTRIBUTION WIDTH 16.1 % (11.5-14.5)
[2018-07-12 16:51] LABS: CARBON DIOXIDE 32.6 mmol/L (21-32); CHLORIDE SERUM 101 mmol/L (98-107); GLUCOSE SERUM 165 mg/dL (74-106); POTASSIUM SERUM 4.4 mmol/L (3.5-5.1); SODIUM SERUM 138 mmol/L (136-145)
[2018-07-12 16:57] LABS: ALBUMIN 3.6 g/dL (3.4-5.0); ALKALINE PHOSPHATASE 97 U/L (46-116); ALT/SGPT 24 U/L (14-59); AST/SGOT 14 U/L (15-37); BILIRUBIN TOTAL 0.45 mg/dL (0.20-1.00); TOTAL PROTEIN, SERUM 7.6 g/dL (6.4-8.2)
[2018-07-12 17:40] VITALS: BP 159/91
== END 2018-07-12 17:40 | disposition home or self-care (01) ==
LOC: ED 14:03
PROVIDERS: Emergency Medicine
DX: J02.9 Acute pharyngitis, unspecified (principal); I11.0 Hypertensive heart disease with heart failure; I50.9 Heart failure, unspecified; E11.9 Type 2 diabetes mellitus without complications; Z90.49 Acquired absence of other specified parts of digestive tract; Z87.19 Personal history of other diseases of the digestive system
CPT/HCPCS: 36415; 83880; Q0092

== ENCOUNTER 2018-08-19 15:17 | Inpatient (IN) | payer OTHER, MEDICARE ==
[~2018-08-19] VITALS: Ht 160 cm; Wt 59.0 kg
[2018-08-19 15:23] VITALS: Ht 160 cm; Wt 59.0 kg
--- NOTE | 2018-08-19 15:27 | NUR ---
PT BIB ALS AMBULANCE FROM [place] AT [facility] [place] S/P NONRADIATING AND NONPROVOKED SHARP CHEST PAIN SINCE 1500 TODAY. PER CASTING INSPECTOR SHE WAS GETTING CHEMP TX D/T RIGHT BREAST CANCER. PER CASTING INSPECTOR PT WAS IN AFIB AND AFLUTTER OFF AND ON WITH HTN SBP IN MID 200'S. UPON ARRIVAL PT AAOX4 RESPS E/U DENIES SOB SPO2 97% VIA RA GERMAN SPEAKING ONLY PT ALBERT N/V PAIN LEVEL 3/10 PT PLACED ON FULL ADAPTED PHYSICAL EDUCATION TEACHER MD JOHNSON AT BEDSIDE PERFORMING MSE
--- NOTE | 2018-08-19 15:41 | NUR ---
LAB AT BEDSIDE
[2018-08-19 16:05] LABS: BASOPHIL % 0.7 % (0-2); PLATELET COUNT 184 x10^3mcL (130-400)
[2018-08-19] MEDS ORDERED: ANASTROZOLE1 M1 PO (16:28)
[2018-08-19 16:29] LABS: microscopic required? NO
[2018-08-19 16:38] LABS: urine erythrocyte NEGATIVE (NEGATIVE)
[2018-08-19] MEDS ORDERED: TRADJENTA5 M1 PO (16:39)
[2018-08-19] MEDS ORDERED: CARTIA XT180 M1 PO (16:39)
[2018-08-19] MEDS ORDERED: BIDIL TABLET1 EACH PO (16:40)
[2018-08-19] MEDS ORDERED: CALCIUM/VITAMIN1 TA2 PO (16:41)
[2018-08-19] MEDS ORDERED: ATORVASTATIN CA20 M1 PO (16:42)
[2018-08-19] MEDS ORDERED: NITROGLYCERIN0.4 MG SL (16:44)
[2018-08-19] MEDS ORDERED: SIMBRINZA8 ML OU (16:46)
[2018-08-19] MEDS ORDERED: DIGOXIN0.125 M1 PO (16:47)
[2018-08-19] MEDS ORDERED: RESTASIS0.051 OU (16:48)
[2018-08-19 16:50] LABS: CALCIUM 8.6 mg/dL (8.5-10.1); CARBON DIOXIDE 31.4 mmol/L (21-32); CHLORIDE SERUM 105 mmol/L (98-107); GLUCOSE SERUM 200 mg/dL (74-106); POTASSIUM SERUM 4.6 mmol/L (3.5-5.1); SODIUM SERUM 142 mmol/L (136-145)
--- NOTE | 2018-08-19 16:50 | NUR ---
PT IN POSITION OF COMFORT RESP E/U NO S/S DISTRESS AT THIS TIME DAUGHTER AT BEDSIDE CALL LIGHT WITHIN REACH INSTRUCTED TO USE IF ANY ASSISTANCE NEEDED WILL CONTINUE TO MONITOR
[2018-08-19 16:56] LABS: AMPHETAMINE QUAL UR NONE DETECTED (See below)
--- NOTE | 2018-08-19 16:57 | NUR ---
PT RESTING AT BEDSIDE IN NAD. BREATHING E/U, BILATERAL CHEST RISE. BED AT LOWEST LEVEL. CALL LIGHT IN REACH. DAUGHTER AT BEDSIDE
[2018-08-19 17:08] LABS: ALBUMIN 3.4 g/dL (3.4-5.0); ALKALINE PHOSPHATASE 103 U/L (46-116); ALT/SGPT 38 U/L (14-59); AMYLASE 58 U/L (25-115); AST/SGOT 26 U/L (15-37); BILIRUBIN TOTAL 0.35 mg/dL (0.20-1.00); HDL CHOLESTEROL 42 mg/dL (40-60); LIPASE 216 IU/L (73-393); T4(THYROXINE) 6.9 ug/dL (4.7-13.3); TOTAL PROTEIN, SERUM 6.8 g/dL (6.4-8.2)
[2018-08-19 17:09] LABS: CHOLESTEROL 126 mg/dL (<200)
--- NOTE | 2018-08-19 17:39 | NUR ---
PT IN POSITION OF COMFORT RESPS E/U PT STATES SHE "FEELS BETTER" DAUGHTER AT BEDSIDE
--- NOTE | 2018-08-19 18:35 | NUR ---
PATIENT HAS BEEN BROUGHT BACK FROM CT
--- NOTE | 2018-08-19 19:03 | NUR ---
REPORT GIVEN TO ÁNGEL MATTHEWS WHO IS RESUMING CARE OF PT AT THIS TIME
--- NOTE | 2018-08-19 19:51 | NUR ---
PT PROVIDED SANDWHICH AND A WATER. IS AWARE OF ELEVATED BP AND STATES HE WILL PUT IN ORDERS FOR MEDICATIONS.
--- NOTE | 2018-08-19 20:15 | NUR ---
WHEN RN CAME TO PT ROOM TO DISCUSS INFORMATION FOR ADMISSION FAMILY STATES THAT MD HAD NOT SPOKEN TO THE PT OR THE FAMILY. MD HAD TO BE ASKED MULTIPLE TIMES FOR MEDICATIONS FOR ELEVATED BLOOD PRESSURE. MD HAS GONE HOME WITHOUT SPEAKING TO PT AND FAMILY. FAMILY AND PT NOTIFED OF ADMISSION BY RN. WILL MONITOR FOR ELEVATED BLOOD PRESSURE AND CHEST PAIN.
[2018-08-19 21:17] VITALS: BP 199/107
--- NOTE | 2018-08-19 21:22 | NUR ---
RECEIVED PT FROM ED VIA TORRES. ORIENTED PT TO ROOM AND SURROUNDINGS. IV NOTED TO LAC PATENT AND INTACT. TELE 1 PLACED ON PT READING AFIB. INSTRUCTED PT ON THE USE OF CALL LIGHT FOR ASSISTANCE. ENDORSED PT TO PRIMARY NURSE HAYDEE
--- NOTE | 2018-08-19 21:25 | NUR ---
RECEIVED PT FROM PREVIOUS SHIFT NURSE. PT AOX3, FORGETFUL AT TIMES. [place]. TELE #1, AFIB. DENIES CP/PRESSURE. PULSES PALPABLE, +1 BLE EDEMA NOTED. LUNG SOUNDS DIMINISHED, ON RA. DENIES SOB/DIFFICULTY BREATHING. BOWEL SOUNDS ACTIVE. VOIDS FREELY. GEN WEAKNESS. AMBULATORY WITH ASSIST. SKIN INTACT. IV TO LAC, INTACT AND PATENT. BED IN LOWEST POSITION. CALL LIGHT WITHIN REACH. WILL CONTINUE TO MONITOR.
[2018-08-19 22:02] LABS: MAGNESIUM 2.1 mg/dL (1.8-2.4); PHOSPHOROUS 4.1 mg/dL (2.5-4.9)
[2018-08-19 22:11] VITALS: BP 197/109
--- NOTE | 2018-08-19 23:10 | NUR ---
BP NOW 202/111 [address] CHAIDEZ NOTIFIED. AWAITING FURTHER ORDERS. WILL CONTINUE TO MONITOR.
[2018-08-19 23:31] VITALS: BP 202/111
--- NOTE | 2018-08-19 23:48 | NUR ---
HYDRALAZINE ADMINISTERED SLOW IVP OVER [address] ARGUELLES. WILL CONTINUE TO MONITOR.
[2018-08-20] VITALS (7 sets, daily range): BP systolic 124–169; BP diastolic 60–92
--- NOTE | 2018-08-20 01:10 | NUR ---
BP UPON RECHECK 161/91 HR 84.
[2018-08-20 06:17] LABS: BASOPHIL % 0.3 % (0-2); PLATELET COUNT 193 x10^3mcL (130-400)
[2018-08-20 06:46] LABS: CALCIUM 9.1 mg/dL (8.5-10.1); CARBON DIOXIDE 31.6 mmol/L (21-32); CHLORIDE SERUM 105 mmol/L (98-107); GLUCOSE SERUM 190 mg/dL (74-106); PHOSPHOROUS 4.5 mg/dL (2.5-4.9); POTASSIUM SERUM 3.8 mmol/L (3.5-5.1); SODIUM SERUM 144 mmol/L (136-145)
[2018-08-20 06:53] LABS: RED CELL DISTRIBUTION WIDTH 17.2 % (11.5-14.5)
--- NOTE | 2018-08-20 07:30 | NUR ---
REPORT TAKEN AT THE BEDSIDE FROM BRAKE TESTER NURSE, PT AWAKE, ALERT AT THIS TIME. DENIED PAIN, RESTING COMFORTABLY. WILL COMPLETE ASSESSMENT IN CHART.
--- NOTE | 2018-08-20 17:05 | NUR ---
PT BLOOD SUGAR ASSESSED USING FINGERSTICK AND NOVA MACHINE AT 1649
--- NOTE | 2018-08-20 17:14 | NUR ---
PT BLOOD SUGAR ASSESSED ORDERED AT 1649, RESULT WAS 57. PT WAS TESTED AGAIN ON THE OPPOSITE HAND, RESULT WAS 55. PT WAS ALERT AND ORIENTED X 3, AND DENIED DIZZINESS, WEAKNESS, AND HEADACHE. NO S/S OF HYPOGLYCEMIA REPORTED OR OBSERVED. PT WAS GIVEN ORANGE JUICE, BLOOD SUGAR ASSESSED AGAIN, RESULT WAS 93. PT AND FAMILY ADVISED TO EAT DINNER.
--- NOTE | 2018-08-20 19:09 | NUR ---
REPORT GIVEN TO FINAN[employer]UT[employer] ADVISOR NURSE, CARE ENDORSED.
--- NOTE | 2018-08-20 19:20 | NUR ---
RECEIVED PT FROM PREVIOUS SHIFT NURSE. PT AOX3, FORGETFUL AT TIMES. TELE #1, AFIB. DENIES CP/PRESSURE. PULSES PALPABLE, +1 BLE EDEMA NOTED. LUNG SOUNDS DIMINISHED, ON RA. DENIES SOB/DIFFICULTY BREATHING. BOWEL SOUNDS ACTIVE. VOIDS FREELY. GEN WEAKNESS. AMBULATORY WITH ASSIST. SKIN INTACT. IV TO LAC, INTACT AND PATENT. BED IN LOWEST POSITION. CALL LIGHT WITHIN REACH. WILL CONTINUE TO MONITOR.
--- NOTE | 2018-08-21 01:07 | NUR ---
PT RESTING IN BED. RR EVEN AND UNLABORED. NO ACUTE DISTRESS NOTED. CALL LIGHT WITHIN REACH. BED IN LOWEST POSITION. WILL CONTINUE TO MONITOR.
[2018-08-21 05:20] VITALS: BP 158/70
[2018-08-21 07:18] LABS: CALCIUM 8.8 mg/dL (8.5-10.1); CARBON DIOXIDE 29.5 mmol/L (21-32); CHLORIDE SERUM 104 mmol/L (98-107); GLUCOSE SERUM 136 mg/dL (74-106); MAGNESIUM 1.9 mg/dL (1.8-2.4); PHOSPHOROUS 4.7 mg/dL (2.5-4.9); POTASSIUM SERUM 3.9 mmol/L (3.5-5.1); SODIUM SERUM 141 mmol/L (136-145)
--- NOTE | 2018-08-21 07:50 | NUR ---
RC'D PT RESTING IN BED WITH NO APPARENT SIGNS OF DISTRESS. A/A/O/X3, SPEECH CLEAR AND APPRORPIATE. DENIES TITUS/DIZZINESS. HX OF DEMENTIA. ON TELE, DENIES CHEST PAIN/PRESSURE. PALP PULSES, EDEMA NOTED TO BLE. RESPIRATIONS EQUAL AND UNLABORED. LUNGS DIM IN BASES. ON RA, DENIES SOB. ABDOMEN SOFT AND NOTNENDER. ACIVE BS. DENIES N/V. VOIDS FREELY. GENERALIZED WEAKNESSS. AMB WITH ASSIST. SKIN W/D/I. DENIES PAIN AT THIS TIME. IV APTENT AND INTACT. BED IN LOW POSITION. CALL LIGHT IN REACH. WILL CONTINUE TO MONITOR
[2018-08-21 07:51] LABS: BASOPHIL % 0.3 % (0-2); PLATELET COUNT 179 x10^3mcL (130-400)
[2018-08-21 08:04] LABS: RED CELL DISTRIBUTION WIDTH 17.4 % (11.5-14.5)
[2018-08-21 09:43] VITALS: BP 126/81
--- NOTE | 2018-08-21 09:50 | NUR ---
AM MEDICATIONS GIVEN. PT TOLERATED WELL. RESPIRATIONS EQUAL UNLABORED. ON RA, DENIES SOB. PT DENIES PAIN AT THIS TIME. BED IN LOW POSITION. CALL LIGHT IN REACH. WILL CONTINUE TO MONITOR
--- NOTE | 2018-08-21 11:51 | NUR ---
PT RESTIGN IN CHAIR WITH NO APPARENT SIGNS OF DISTRESS. RESPIRATIONS EQUAL AND UNLABORED. ON RA, DENIES SOB/PAIN. CALL LIGHT IN REACH. WILL COTNINUE TO MONIOTR
[2018-08-21 14:44] VITALS: BP 126/81
--- NOTE | 2018-08-21 15:58 | NUR ---
PT PROVIDED WITH DC HOME INSTRUCTIONS. PT GIVEN MEDICATION EDUCATION. PT INFORMED TO TAKE MEDICATIONS ORDERED BY MD. PT INFORMED OF FOLLOW UP APPT WITH PCP. PT INFORMED THAT IF WORSENING S/S WERE TO OCCUR TO RETURN TO ED OR REPORT TO PCP. PT AND FAMILY VERBALIZED UNDERSTANDING OF INSTRUCTIONS. TELE ND IV DC'D, CATHETER INTACT. NO REDNESS/INFLAMMATION/DISCOMFORT NOTED. PT WITH ALLPERSONAL BELONGINGS IN HAND WITH FAMILY PRESENT AND NO APPARENT SIGNS OF DISTRESS
== END 2018-08-21 16:46 | disposition home or self-care (01) | DRG 243 ==
LOC: ED 15:17 → DU 19:52
PROVIDERS: Emergency Medicine; ADMIT Internal Medicine
DX: K21.9 Gastro-esophageal reflux disease without esophagitis (principal); N17.0 Acute kidney failure with tubular necrosis; C78.01 Secondary malignant neoplasm of right lung; E11.65 Type 2 diabetes mellitus with hyperglycemia; I48.91 Unspecified atrial fibrillation; E11.51 Type 2 diabetes mellitus with diabetic peripheral angiopathy without gangrene; Z99.81 Dependence on supplemental oxygen; C50.911 Malignant neoplasm of unspecified site of right female breast; F03.90 Unspecified dementia, unspecified severity, without behavioral disturbance, psychotic disturbance, mood disturbance, and anxiety; M94.0 Chondrocostal junction syndrome [Tietze]; I10 Essential (primary) hypertension; H11.003 Unspecified pterygium of eye, bilateral; Z68.28 Body mass index [BMI] 28.0-28.9, adult; Z79.899 Other long term (current) drug therapy; Z79.84 Long term (current) use of oral hypoglycemic drugs; Z79.01 Long term (current) use of anticoagulants; Z86.73 Personal history of transient ischemic attack (TIA), and cerebral infarction without residual deficits
CPT/HCPCS: 82962; 83880; 85378; J0360; Q0092; Q9967

== ENCOUNTER 2018-09-05 14:30 | Emergency (ER) | payer OTHER, MEDICARE ==
[~2018-09-05] VITALS: Ht 154.9 cm; Wt 56.2 kg
[~2018-09-05 14:30] MED LIST changes: +ANASTROZOLE1 M1 PO; +ATORVASTATIN CA20 M1 PO; +CARTIA XT180 M1 PO; +SIMBRINZA8 ML OU
[2018-09-05 14:43] VITALS: Ht 154.9 cm; Wt 56.2 kg
[2018-09-05 16:02] VITALS: BP 145/93
== END 2018-09-05 16:02 | disposition home or self-care (01) ==
LOC: ED 14:30
DX: S99.912A Unspecified injury of left ankle, initial encounter (principal); S99.922A Unspecified injury of left foot, initial encounter; I11.0 Hypertensive heart disease with heart failure; I50.9 Heart failure, unspecified; I48.91 Unspecified atrial fibrillation; E11.9 Type 2 diabetes mellitus without complications; Z98.890 Other specified postprocedural states; W19.XXXA Unspecified fall, initial encounter; Y93.89 Activity, other specified; Y92.89 Other specified places as the place of occurrence of the external cause; Y99.8 Other external cause status
CPT/HCPCS: Q0092

== ENCOUNTER 2019-01-03 04:37 | Inpatient (IN) | payer OTHER, MEDICARE ==
[~2019-01-03] VITALS: Ht 152.4 cm; Wt 56.0 kg
--- NOTE | 2019-01-03 04:57 | NUR ---
PATIENT AAOX4 PRESENTS TO THE ED WITH LOW GRADE FEVER AND PRODUCTIVE COUGH WITH WHITE PHLEGM X 3 DAYS. PATIENT HAS BEEN UNDERGOING CHEMOTHERAPY FOR BREAST CA. BREATHING E/U LUNGS SCATTERED RHONCHI IN BILATERAL UPPER AND LOWER LOBES. SKIN WARM, DRY AND INTACT, PT PLACED ON MONITORS FOR FURTHER OBSERVATION. WILL CONTINUE TO MONITOR.
--- NOTE | 2019-01-03 05:18 | NUR ---
DR POLLACK BEDSIDE [facility] MSE
[2019-01-03 05:21] LABS: PLATELET COUNT 141 x10^3mcL (130-400)
[2019-01-03 05:23] LABS: BASOPHIL % 0 % (0-2); RED CELL DISTRIBUTION WIDTH 15.2 % (11.5-14.5)
--- NOTE | 2019-01-03 05:42 | NUR ---
RESPIRATORY PROVIDING BREATHING TX.
[2019-01-03 06:13] LABS: CALCIUM 9.5 mg/dL (8.5-10.1); CARBON DIOXIDE 29.9 mmol/L (21-32); CHLORIDE SERUM 100 mmol/L (98-107); CREATININE SERUM 1.4 mg/dL (0.6-1.0); GLUCOSE SERUM 228 mg/dL (74-106); POTASSIUM SERUM 4.2 mmol/L (3.5-5.1); SODIUM SERUM 139 mmol/L (136-145)
[2019-01-03 06:18] LABS: ALBUMIN 3.8 g/dL (3.4-5.0); ALKALINE PHOSPHATASE 106 U/L (46-116); ALT/SGPT 23 U/L (14-59); AST/SGOT 15 U/L (15-37); BILIRUBIN TOTAL 0.61 mg/dL (0.20-1.00); TOTAL PROTEIN, SERUM 8.1 g/dL (6.4-8.2)
--- NOTE | 2019-01-03 06:21 | NUR ---
MEDICATED PER MD ORDERS
[2019-01-03 06:49] LABS: microscopic required? YES; urine erythrocyte NEGATIVE (NEGATIVE)
--- NOTE | 2019-01-03 07:05 | NUR ---
REPORT GIVEN TO BYRON ÁLVAREZ FOR CONTINUED CARE OF PATIENT.
--- NOTE | 2019-01-03 07:10 | NUR ---
PT IS AWAKE AND ALERT. BREATHING EVEN AND UNLABORED. PT STATES SHE IS FEELING A LITTLE BETTER NOW. PT NIECE AT BEDSIDE. PT IS HOOKED UP TO FULL MONITORS, SIDE RAILS UP, CALL LIGHT IN REACH, WILL CONTINUE TO MONITOR.
[2019-01-03] MEDS ORDERED: CARTIA XT180 M1 PO (08:00)
[2019-01-03] MEDS ORDERED: GLIMEPIRIDE2 M1 PO (08:01)
[2019-01-03] MEDS ORDERED: BIDIL TABLET1 EACH PO (08:04)
--- NOTE | 2019-01-03 08:22 | NUR ---
REPORT GIVEN TO ADEEL ON MS/T FOR FURTHER CARE OF PT
[2019-01-03 08:36] VITALS: BP 146/66
--- NOTE | 2019-01-03 08:57 | NUR ---
RECEIVED PT FROM ED VIA [employer]. AA/OX4. NO S/S OF ACUTE DISTRESS. FOLLOWS COMPLEX COMMANDS, RESPONDS TO VERBAL STIMULI. COMPLAINT OF COUGH/SOB X 3 DAYS WITH ASSOCIATED POOR APPETITE. PT ON 2LNC, O2 SAT 94%, RR EVEN/SHALLOW, CONGESTED COUGH NOTED. DENIES N/V. NO CHILLS. NO FEVER. NO DIARRHEA. NO TITUS. NO DIZZINESS. FACE SYMMETRICAL, SPEECH CLEAR. SPEAKS [place]AK[place]. POOR VISION RIGHT EYE. WEARS GLASSES, KEPT AT HOME WITH PATIENT FAMILY MEMBER (NIECE), WEARS DENTURES, KEPT AT HOME WITH NIECE. LIVES WITH NIECE AT HOME. NO CHEST PAIN. NSR ON TELE 7. HR 91. VS STABLE. IV WNL TO LAC, 22 GAUGE. PATENT AND FLUSHES WELL. NIECE REPORTS PT FELL YESTERDAY. FALL PREC IN PLACE, BED ALARM ON. SIDE RAILS UP X2. INSTRUCTED TO USE CALL LIGHT TO CALL FOR ASSISTANCE BEFORE GETTING OOB. VERBALIZED UNDERSTANING. BED IN LOW POSITION. CALL LIGHT WITHIN REACH. WILL CONTINUE TO MONITOR.
[2019-01-03 10:15] VITALS: BP 168/82
[2019-01-03 10:43] VITALS: BP 167/76
--- NOTE | 2019-01-03 10:43 | NUR ---
TEMP DECREASING, 101.8F, GIVEN TYLENOL SEE JUL. COOLING MEASURES IN PLACE. RECEIVING IV ANTIBIOTIC. NO N/V. NO SOB ON 2LNC. NO S/S OF ACUTE DISTRESS. BP 167/76 TO LEFT UPPER ARM. BED IN LOW POSITION. CALL LIGHT WITHIN REACH. BED ALARM ON. WILL CONTINUE TO MONITOR.
[2019-01-03 11:35] VITALS: BP 147/75
--- NOTE | 2019-01-03 11:35 | NUR ---
TEMP 99.3F, TEMP DECREASING. NO S/S OF ACUTE DISTRESS. AA/OX4. RESTING IN BED WITH BOTH EYES CLOSED. NO COMPLAINT OF PAIN. NO S/S OF ACUTE RESPIRATORY DISTRESS ON 2LNC. RR EVEN/UNLABORED AT THIS TIME. AFIB ON TELE. NO S/S OF PAIN. BED IN LOW POSITION. CALL LIGHT WITHIN REACH. WILL CONTINUE TO MONITOR.
--- NOTE | 2019-01-03 14:01 | NUR ---
REPORTS GIVEN TO [facility] BYRON PRIEST AT [phone]. ENDORSED, QUESTIONS ANSWERED. [facility] SCHEDULED FOR MANUFACTURING TECH AT 1830 PER NICOLE REQUEST FROM [facility] FACILITY.
[2019-01-03 16:20] VITALS: BP 160/88
--- NOTE | 2019-01-03 18:22 | NUR ---
PT RESTING IN BED WITH BOTH EYES CLOSED. NO S/S OF PAIN. NO SOB ON 2LNC. CHEST EXPANSION SYMMETRICAL. UNLABORED AT THIS TIME. CALM/COOPERATIVE. DENIES PAIN. EASILY AROUSABLE TO VERBAL STIMULI. FALL PRECAUTIONS IN PLACE. IV WNL TO LAC, IV FLUIDS FLOWING. NO COMPLAINT OF PAIN. BED IN LOW POSITION. CALL LIGHT WITHIN REACH. WILL CONTINUE TO MONITOR.
--- NOTE | 2019-01-03 19:20 | NUR ---
RECEIVED PT FROM PREVIOUS SHIFT NURSE. PT AOX4, POOR VISION IN R. EYE, [place] B/L. DENIES TITUS/DIZZINESS. TELE #7, AFIB, HR 80. DENIES CP/PRESSURE. DENIES SOB/DIFFICULTY BREATHING, ON RA. GEN WEAKNESS. IV TO LAC, INTACT AND PATENT. BED IN LOWEST POSITION. CALL LIGHT WITHIN REACH. WILL CONTINUE TO MONITOR. BED IN LOWEST POSITION. CALL LIGHT WITHIN REACH. WILL CONTINUE TO MONITOR.
--- NOTE | 2019-01-03 19:20 | NUR ---
RECEIVED PT FROM PREVIOUS SHIFT NURSE. PT AOX4, POOR VISION IN R. EYE, [place] B/L. DENIES TITUS/DIZZINESS. TELE #7, AFIB, HR 80. DENIES CP/PRESSURE. DENIES SOB/DIFFICULTY BREATHING, ON 2L NC. GEN WEAKNESS. IV TO LAC, INTACT AND PATENT. BED IN LOWEST POSITION. CALL LIGHT WITHIN REACH. WILL CONTINUE TO MONITOR.
[2019-01-03 20:48] VITALS: BP 163/95
--- NOTE | 2019-01-04 00:26 | NUR ---
PT RESTING IN BED. RR EVEN AND UNLABORED. IN NO ACUTE DISTRESS. CALL LIGHT WITHIN REACH. BED IN LOWEST POSITION. WILL CONTINUE TO MONITOR.
[2019-01-04 05:25] VITALS: BP 167/91
[2019-01-04 06:10] LABS: BASOPHIL % 0.1 % (0-2); PLATELET COUNT 131 x10^3mcL (130-400)
[2019-01-04 06:36] LABS: RED CELL DISTRIBUTION WIDTH 14.6 % (11.5-14.5)
[2019-01-04 06:37] LABS: CALCIUM 8.9 mg/dL (8.5-10.1); CARBON DIOXIDE 27.5 mmol/L (21-32); CHLORIDE SERUM 105 mmol/L (98-107); CREATININE SERUM 1.1 mg/dL (0.6-1.0); GLUCOSE SERUM 244 mg/dL (74-106); POTASSIUM SERUM 4.2 mmol/L (3.5-5.1); SODIUM SERUM 143 mmol/L (136-145)
[2019-01-04 06:44] VITALS: BP 130/80
--- NOTE | 2019-01-04 07:12 | NUR ---
RECEIVED PT FROM SHIFT NURSE A/OX4 LYING IN BED. RESP EVEN AND UNLABORED ON 2L NC. IV INTACT AND PATENT. FALL PREACAUTIONS IN PLACE. BED IN LOW POSITION. CALL LIGHT WITHIN REACH. WILL CONTINUE TO MONITOR.
[2019-01-04 08:56] VITALS: BP 157/84
--- NOTE | 2019-01-04 10:39 | NUR ---
PT RESTING IN BED WATCHING TV. NO ACUTE DISTRESS. FAMILY MEMBER AT BEDSIDE. CALL LIGHT WITHIN REACH. WILL CONTINUE TO MONITOR.
--- NOTE | 2019-01-04 11:30 | NUR ---
PT AMBULATING AROUND HALLWAY WITH PHYSICAL THERAPIST
[2019-01-04 11:46] VITALS: BP 142/78
--- NOTE | 2019-01-04 13:46 | NUR ---
PT SITTING ON CHAIR. NO ACUTE DISTRESS NOTED. CALL LIGHT WITHIN REACH. WILL CONTINUE TO MONITOR.
--- NOTE | 2019-01-04 15:27 | NUR ---
PT ASLEEP BUT AROUSABLE. NO ACUTE DISTRESS NOTED. CALL LIGHT WITHIN REACH. WILL CONTINUE TO MONITOR.
[2019-01-04 16:55] VITALS: BP 116/56
--- NOTE | 2019-01-04 18:15 | NUR ---
PT RESTING IN BED WATCHING TV. NO ACUTE DISTRESS NOTED. RESP EVEN AND UNLABORED ON 2L NC. IV INTACT AND PATENT. FALL PRECAUTIONS IN PLACE. BED IN LOW POSITION. CALL LIGHT WITHIN REACH. WILL BE ENDORSED.
--- NOTE | 2019-01-04 19:30 | NUR ---
PT IS A/O x4. ON TELE #7, A FIB. DENIES ANY CHEST PAIN OR PRESSURE. PULSES ARE PRESENT. NO EDEMA NOTED. SLIGHT RALES NOTED ON KULWANT LOBED. ON 2L NC. DENIES ANY SOB. EQUAL CHEST RISE AND FALL. NO SIGN OF RESP DISTRESS. BOWEL SOUNDS ACTIVE x4. DENIES ANY ABD PAIN. ABD SOFT AND ROUND. SKIN WARM AND INTACT. IV ON LAC INTACT AND PATENT. NO SIGN OF IRRITATION OR INFILTRATION NOTED. DENIES ANY PAIN AT THIS TIME. BED IS AT LOWEST SETTING. CALL LIGHT WITHIN REACH. BED ALARM IS ON. SIDE RAILS x2 UP FOR PT SAFETY. WILL CONTINUE TO [facility].
[2019-01-04 20:15] VITALS: BP 132/60
--- NOTE | 2019-01-05 00:38 | NUR ---
PT IS RESTING IN BED. DENIES ANY PAIN OR DISTRESS. IV INTACT. BED IS AT LOWEST SETTING. CALL LIGHT WITHIN REACH. BED ALARM IS ON. WILL CONTINUE TO MONTIOR.
[2019-01-05 05:59] VITALS: BP 153/86
[2019-01-05 06:19] LABS: PLATELET COUNT 145 x10^3mcL (130-400)
--- NOTE | 2019-01-05 06:35 | NUR ---
PT IS RESTING IN BED WITH BOTH EYES CLOSED. BREATHING EVEN AND UNLABORED. NO SIGN OF DISTRESS NOTED. ON 2L NC. NO ACUTE EVENT OCCURED AT NIGHT. BED IS AT LOWEST SETTING. CALL LIGHT WITHIN REACH. BED ALARM IS ON FOR PT SAFETY. WILL ENDORSE TO AM NURSE.
[2019-01-05 06:45] LABS: CALCIUM 8.7 mg/dL (8.5-10.1); CARBON DIOXIDE 25.6 mmol/L (21-32); CHLORIDE SERUM 105 mmol/L (98-107); CREATININE SERUM 1.2 mg/dL (0.6-1.0); GLUCOSE SERUM 249 mg/dL (74-106); POTASSIUM SERUM 4.1 mmol/L (3.5-5.1); SODIUM SERUM 141 mmol/L (136-145)
[2019-01-05 06:49] LABS: BASOPHIL % 0 % (0-2)
--- NOTE | 2019-01-05 07:50 | NUR ---
RC'D PT RESTING IN BED WTIH NO APAPRENT SIGNS OF DISTRESS. A/A/O/X4, SPEECH CLEAR AND APPROPRIATE, SLOW SPEECH. PT DENIES TITUS/DIZZINESS. ON TELE, DENIES CHEST PAIN/PRESSURE. PALP PULSES, NO EDEMA NOTED. RESPIRATIONS EQUAL AND UNLABORED. LUNGS DIM IN BASES. ON 2L VIA NC O2, DENIES SOB. ABDOMEN SOFT AND NONTENDER. ACTIVE BS. DENEIS N/V. VOIDS FREELY, INCONTINENT AT TIMES. GENERALIZED WEAKNESS, PT ABLE TO REPOSITION SELF IN BED. SKIN W/D/I. PT DENIES PAIN. IV PATENT AND INTACT. BED IN LOW POSITION. CALL LIGHT IN REACH. WILL CONT TO MONITOR
[2019-01-05 08:33] VITALS: BP 171/69; BP 172/93
--- NOTE | 2019-01-05 09:14 | NUR ---
AM MEDICATIONS GIVEN. PT TOLERATED WELL. RESPIRATIONS EQUAL AND UNLABORED. ON 2L VIA NC, DENIES SOB. NO RESP DISTRESS NOTED. APICAL PULSE 78. PT DENIES PAIN AT THIS TIME. BED IN LOW POSIITON. CALL LIGHT IN REACH. WILL CONT TO MONITOR
--- NOTE | 2019-01-05 11:00 | NUR ---
RC'D PT POSITIVE FOR MRSA NARES, NOTIFIED LIZ ROGER. AWAITING NEW ORDERS
--- NOTE | 2019-01-05 11:14 | NUR ---
PT RESTING IN CHAIR WITH NO APPARENT SIGNS OF DISTRESS. RESPIRATIONS EQUAL AND UNLABORED. DENIES SOB. PT DNEIES PAIN AT THIS TIME. BED IN LOW POSITION. CALL LIGHT IN REACH. WILL COTN TO MONITOR
[2019-01-05 12:19] VITALS: BP 149/72
--- NOTE | 2019-01-05 13:00 | NUR ---
RECEIVED PT FROM CARLOS MATTHEWS. PT IS A/OX4, SITTING AT CHAIR AND EATING LUNCH. DENY ANY RESPIRATORY DISTRESSS, DENY ANY PAIN OR DISCOMFORT, IV AT LEFT AC, NO LEAKING, NO INFILTRATION. ALL ADLS ASSIST, ALL NEED MET, CALL LIGHT IN REACH, WILL CONTINUE TO MONITOR.
[2019-01-05 13:47] VITALS: Ht 152.4 cm; Wt 56.0 kg
[2019-01-05 16:57] VITALS: BP 152/95
--- NOTE | 2019-01-05 18:06 | NUR ---
PT IS A/O VERBAL RESPONSIVE, ANA PAULA TO TELL WHAT SHE NEEDS. DENY ANY RESPIRATORY DISTRESS, DENY ANY PAIN OR DISCOMFORT, IV AT LEFT AC, NO LEAKING, NO INFILTRATION. ALL ADLS ASSIST, ALL NEED MET, CALL LIGHT IN REACH, WILL CONTINUE TO MONITOR.
--- NOTE | 2019-01-05 19:15 | NUR ---
PT IS A/O x4. R EYE POOR VISION. [place]. ON TELE #7, AFIB. DENIES ANY CHEST PAIN OR PRESSURE. PULSES ARE PRESENT. NO EDEMA NOTED. LUNGS CLEAR IN ALL SCHULZ, BUT DIMINISHED AT BASES. ON 2L NC. DENIES ANY SOB. EQUAL CHEST RISE AND FALL. NO SIGN OF RESP DISTRESS. BOWEL SOUNDS PRESENT x4. DENIES ANY ABD PAIN OR DISTRESS. SKIN INTACT, BUT LUMP NOTED ON TOP OF R BREAST, PT DENIES PAIN AT SITE. DENIES ANY PAIN OR DISTRESS. IV ON LAC INTACT AND PATENT. NO SIGN OF IRRITATION OR INFILTRATION NOTED. BED IS AT LOWEST SETTING. CALL LIGHT WITHIN REACH. BED ALARM IS ON. SIDE RAILS UP x2 FOR PT SAFETY. WILL CONTINUE TO MONTIOR.
[2019-01-05 20:18] VITALS: BP 190/101
--- NOTE | 2019-01-05 21:50 | NUR ---
MD DE LEON WAS PAGED TO NOTIFY ABOUT PT B/P REMAINING ELEVATED AT 180S/100 EVEN WITH HER B/P MEDICATION ADMINISTERED. AWAITING CALL BACK.
--- NOTE | 2019-01-05 22:08 | NUR ---
MD DE LEON WAS PAGED GATE ABOUT PT B/P REMAINING AT 180S/100 EVEN WITH HER SCHEDULED B/P MEDICATION. AWAITING RESPOND.
--- NOTE | 2019-01-05 22:31 | NUR ---
SPOKE WITH MD DE LEON ABOUT PT HIGH B/P. TO ORDER MEDICATION. WILL CARRY OUT ORDERS.
--- NOTE | 2019-01-05 23:09 | NUR ---
PUSHED PRN HYDRALAZINE PER EMAR. PT B/P 171/99 HR 99. WILL MONITOR B/P.
[2019-01-05 23:30] VITALS: BP 145/74
--- NOTE | 2019-01-05 23:30 | NUR ---
RECHECKED B/P AFTER MEDICATION. B/P IS NOW 145/74 (95) WITH HR OF 89. PT RESTING COMFORTABLE IN BED. BED IS AT LOWEST SETTING. CALL LIGHT WITHIN REACH. BED ALARM IS ON. WILL CONTINUE TO MONTIOR.
--- NOTE | 2019-01-06 02:04 | NUR ---
PT IS RESTING IN BED WITH BOTH EYES CLOSED. BREATHING EVEN AND UNALBORED. NO SIGN OF DISTRESS NOTED. BED IS AT LOWEST SETTING. CALL LIGHT WITHIN REACH. WILL CONTINUE TO MONTIOR.
[2019-01-06 05:59] VITALS: BP 191/108
[2019-01-06 06:07] LABS: PLATELET COUNT 167 x10^3mcL (130-400)
[2019-01-06 06:24] LABS: CALCIUM 8.9 mg/dL (8.5-10.1); CARBON DIOXIDE 30.6 mmol/L (21-32); CHLORIDE SERUM 105 mmol/L (98-107); GLUCOSE SERUM 186 mg/dL (74-106); POTASSIUM SERUM 4.1 mmol/L (3.5-5.1); SODIUM SERUM 143 mmol/L (136-145)
[2019-01-06 06:38] LABS: BASOPHIL % 0 % (0-2); RED CELL DISTRIBUTION WIDTH 14.8 % (11.5-14.5)
--- NOTE | 2019-01-06 06:41 | NUR ---
PT B/P IS ELEVATED TO 202/114, HR 94. PUSHED 10MG HYDRALAZINE. STRIPS WERE PRINTED. NO OTHER EVENTS OCCURED AT NIGHT. PT IS DENIES ANY PAIN OR DISTRESS. DENIES ANY TITUS OR DIZZINESS. WILL ENDORSE TO AM NURSE.
[2019-01-06 07:01] VITALS: BP 139/82
--- NOTE | 2019-01-06 07:35 | NUR ---
SEEN LAYING IN BED ON RIGHT SIDE. BREATHING E/U ON O2 2LPM N/C. NO RESP DISTRESS NOTED. ON TELE# AFIB. AWAKE, ALERT, ORIENTED TO SELF, PLACE AND SITUATION WITH SOME PERIOD OF FORGETFULNESS AT TIMES. DENIES PAIN. VERY [place]. DIMINISHED LUNG SOUND. GEN BODY WEAKNESS. USES WHEELCHAIR AT HOME TO AMBULATE. IVF NS INFUSING TO RFA IV SITE AT 40ML/HR. ON CONTACT ISOLATION. CALL LIGHT NOTED PLACED WITHIN EASY REACH. SIDERAILS UP X2. BED ALARM ON. WILL CONTINUE TO MONITOR.
[2019-01-06 08:57] VITALS: BP 143/78
--- NOTE | 2019-01-06 09:40 | NUR ---
AM SCHEDULED MEDS GIVEN. NO COUGH OR SIGNS OF ASPIRATION NOTED.
--- NOTE | 2019-01-06 10:25 | NUR ---
PATIENT'S TARUN LAN AT BEDSIDE. CURRENT CONDITION AND PLAN OF CARE UPDATED TO EDYTA.
--- NOTE | 2019-01-06 10:50 | NUR ---
HAD LARGE LOOSE BM ON BEDPAN, PERICARE PROVIDED. PATIENT ABLE TO TURN ON HER SIDE AND GRASPED THE SIDERAIL. PATIENT'S NIECE AT BEDSIDE.
--- NOTE | 2019-01-06 11:03 | NUR ---
SEEN GET OUT OF BED AND WALKING USING [facility] ASSISTED BY PHYSICAL THERAPIST.
[2019-01-06] MEDS ORDERED: ZOS3PM IV (11:26)
[2019-01-06] MEDS ORDERED: NOVAPLUS AZITH500 MG IV (11:29)
[2019-01-06 11:43] VITALS: BP 117/72
[2019-01-06 12:27] VITALS: BP 117/72
[2019-01-06 17:13] VITALS: BP 157/90
--- NOTE | 2019-01-06 18:06 | NUR ---
REPORT GIVEN VIA PHONE TO CLEMENTE DE SOUZA, PATIENT WILL BE TRANSFERRED TO [facility], WILL BE PICKED UP BY AT 2000PM. WILL BE TRANSFERED TO ROOM 38-B.
--- NOTE | 2019-01-06 18:11 | NUR ---
PATIENT'S NIECE EDYTA MADE AWARE VIA PHONE THAT PATIENT WILL BE TRAANSFERED TO [facility] OFFICE MACHINE SERVICE SUPERVISOR TIME 2000PM.
--- NOTE | 2019-01-06 18:16 | NUR ---
NO ANY DISTRESS THROUGHOUT SHIFT. VSS. DENIES PAIN. RT PER PROTOCAL. ALL DUE MEDS GIVEN. TOLERATED CCHO WELL. HAD LARGE BM X1. ABLE TO ASK FOR BEDPAN AND HAD UGENCY OF URINATION AT TIMES. IVF NS AT 40ML/HR INFUSING WELL TO RFA. FALL PRECAUTION MAINTAINED.
--- NOTE | 2019-01-06 19:05 | NUR ---
CARE ASSUMED FROM OUTGOING RN. PT RESTING COMFORATBLY IN BED. NO ACUTE DISTRESS NOTED. EVEN AND UNLABORED RESPIRATIONS ON 2LNC. ON TELE#7 READING AFIB AT 85BPM. IV PATENT AND INTACT RUNNING FLUIDS PER EMAR. DENIES ANY PAIN AT THIS TIME. DISCHARGE PAPERWORK COMPLETE, PENDING TRANSPORTATION. BED IN LOWEST POSITION. SIDE RAILS UPX2. CALL LIGHT WITHIN REACH. WILL CONTINUE TO MONITOR.
--- NOTE | 2019-01-06 21:10 | NUR ---
PT DISCHARGED VIA WHEELCHAIR BY [facility]. ALL BELONGINGS NOTED. FOR. PT IN NO ACUTE DISTRESS. AWARE ABOUT TRANSFER TO SNF. IV PATENT AND INTACT, HEP LOCK FOR TRANSFER. TELE MONITOR REMOVED.
== END 2019-01-06 21:14 | DRG 720 ==
LOC: ED 04:37 → DU 07:56
PROVIDERS: Emergency Medicine; Internal Medicine; ADMIT Internal Medicine
DX: A41.9 Sepsis, unspecified organism (principal); J96.01 Acute respiratory failure with hypoxia; J18.9 Pneumonia, unspecified organism; E11.65 Type 2 diabetes mellitus with hyperglycemia; C50.912 Malignant neoplasm of unspecified site of left female breast; J44.9 Chronic obstructive pulmonary disease, unspecified; I11.9 Hypertensive heart disease without heart failure; Z68.24 Body mass index [BMI] 24.0-24.9, adult; Z79.84 Long term (current) use of oral hypoglycemic drugs; F03.90 Unspecified dementia, unspecified severity, without behavioral disturbance, psychotic disturbance, mood disturbance, and anxiety; Z22.322 Carrier or suspected carrier of Methicillin resistant Staphylococcus aureus
CPT/HCPCS: 36600; 82962; 83880; 94150; 97116-GP; 97530-GP; G0378; J0360; J0456; J0696; J1815; J2543; J2920; J3490; J7030; J7060; J7613; J7620; J7644; Q0092

== ENCOUNTER 2019-02-20 13:37 | Emergency (ER) | payer OTHER, MEDICARE ==
[~2019-02-20] VITALS: Ht 149.9 cm; Wt 56.4 kg
[~2019-02-20 13:37] MED LIST changes: +GLIMEPIRIDE2 M1 PO; +NOVAPLUS AZITH500 MG IV; +ZOS3PM IV
[2019-02-20 13:59] VITALS: Ht 149.9 cm; Wt 56.4 kg
[2019-02-20 17:24] LABS: BASOPHIL % 0.3 % (0-2); PLATELET COUNT 185 x10^3mcL (130-400)
[2019-02-20 17:25] LABS: RED CELL DISTRIBUTION WIDTH 16.5 % (11.5-14.5)
[2019-02-20 17:33] LABS: CALCIUM 8.7 mg/dL (8.5-10.1); CARBON DIOXIDE 31.1 mmol/L (21-32); CHLORIDE SERUM 105 mmol/L (98-107); CREATININE SERUM 1.1 mg/dL (0.6-1.0); GLUCOSE SERUM 185 mg/dL (74-106); POTASSIUM SERUM 4.5 mmol/L (3.5-5.1); SODIUM SERUM 141 mmol/L (136-145)
[2019-02-20 17:37] LABS: ALKALINE PHOSPHATASE 91 U/L (46-116); ALT/SGPT 17 U/L (14-59); AST/SGOT 13 U/L (15-37); BILIRUBIN TOTAL 0.4 mg/dL (0.20-1.00); TOTAL PROTEIN, SERUM 6.6 g/dL (6.4-8.2)
[2019-02-20 17:38] LABS: ALBUMIN 3.1 g/dL (3.4-5.0)
[2019-02-20 21:07] VITALS: BP 179/86
== END 2019-02-20 21:07 | disposition home or self-care (01) ==
LOC: ED 13:37
PROVIDERS: Student in an Organized Health Care Education/Training Program
DX: H60.93 Unspecified otitis externa, bilateral (principal); R51 Headache; J18.9 Pneumonia, unspecified organism; I11.0 Hypertensive heart disease with heart failure; I50.9 Heart failure, unspecified; E11.9 Type 2 diabetes mellitus without complications; Z98.890 Other specified postprocedural states
CPT/HCPCS: 36415; Q0092

== ENCOUNTER 2019-06-02 12:34 | Emergency (ER) | payer MEDICARE, OTHER ==
[~2019-06-02] VITALS: Ht 152.4 cm; Wt 59.0 kg
[2019-06-02 13:55] LABS: BASOPHIL % 0.3 % (0-2); PLATELET COUNT 180 x10^3mcL (130-400)
[2019-06-02 13:56] LABS: RED CELL DISTRIBUTION WIDTH 16.8 % (11.5-14.5)
[2019-06-02 14:11] LABS: CALCIUM 9.2 mg/dL (8.5-10.1); CARBON DIOXIDE 31.4 mmol/L (21-32); CHLORIDE SERUM 101 mmol/L (98-107); CREATININE SERUM 0.9 mg/dL (0.6-1.0); GLUCOSE SERUM 170 mg/dL (74-106); POTASSIUM SERUM 3.9 mmol/L (3.5-5.1); SODIUM SERUM 137 mmol/L (136-145)
[2019-06-02 14:15] LABS: ALBUMIN 3.5 g/dL (3.4-5.0); ALKALINE PHOSPHATASE 104 U/L (46-116); ALT/SGPT 27 U/L (14-59); AST/SGOT 18 U/L (15-37); BILIRUBIN TOTAL 0.5 mg/dL (0.20-1.00); TOTAL PROTEIN, SERUM 7.6 g/dL (6.4-8.2)
[2019-06-02 16:05] VITALS: BP 165/101
== END 2019-06-02 16:05 | disposition home or self-care (01) ==
LOC: ED 12:34
PROVIDERS: Student in an Organized Health Care Education/Training Program
DX: J18.9 Pneumonia, unspecified organism (principal); E86.0 Dehydration; R53.1 Weakness; I11.0 Hypertensive heart disease with heart failure; I50.9 Heart failure, unspecified; E11.9 Type 2 diabetes mellitus without complications; I48.91 Unspecified atrial fibrillation; Z98.890 Other specified postprocedural states
CPT/HCPCS: 36415; 87804; J7030

== ENCOUNTER 2019-10-23 09:15 | Emergency (ER) | payer MEDICARE, OTHER ==
[~2019-10-23] VITALS: Ht 152.4 cm; Wt 63.5 kg
[2019-10-23 09:21] VITALS: Ht 152.4 cm; Wt 63.5 kg
[2019-10-23 10:18] LABS: BASOPHIL % 0.2 % (0-2); PLATELET COUNT 151 x10^3mcL (130-400)
[2019-10-23 10:25] LABS: RED CELL DISTRIBUTION WIDTH 16.5 % (11.5-14.5)
[2019-10-23 10:29] LABS: CALCIUM 8.6 mg/dL (8.5-10.1); CARBON DIOXIDE 34.2 mmol/L (21-32); CHLORIDE SERUM 103 mmol/L (98-107); CREATININE SERUM 1.3 mg/dL (0.6-1.0); GLUCOSE SERUM 235 mg/dL (74-106); POTASSIUM SERUM 4.8 mmol/L (3.5-5.1); SODIUM SERUM 140 mmol/L (136-145)
[2019-10-23 10:33] LABS: ALKALINE PHOSPHATASE 113 U/L (46-116); ALT/SGPT 24 U/L (14-59); AST/SGOT 15 U/L (15-37); BILIRUBIN TOTAL 0.54 mg/dL (0.20-1.00); TOTAL PROTEIN, SERUM 6.7 g/dL (6.4-8.2)
[2019-10-23 10:59] LABS: ALBUMIN 3.2 g/dL (3.4-5.0)
[2019-10-23 13:31] VITALS: BP 156/86
== END 2019-10-23 13:31 | disposition home or self-care (01) ==
LOC: ED 09:15
PROVIDERS: Emergency Medicine
DX: S00.03XA Contusion of scalp, initial encounter (principal); I48.91 Unspecified atrial fibrillation; E87.70 Fluid overload, unspecified; I11.0 Hypertensive heart disease with heart failure; I50.9 Heart failure, unspecified; E11.9 Type 2 diabetes mellitus without complications; Z87.19 Personal history of other diseases of the digestive system; Z85.3 Personal history of malignant neoplasm of breast; W18.11XA Fall from or off toilet without subsequent striking against object, initial encounter; Y93.89 Activity, other specified; Y92.091 Bathroom in other non-institutional residence as the place of occurrence of the external cause; Y99.8 Other external cause status
CPT/HCPCS: 36415; 83880; Q0092